=== PATIENT | male | born 1945 | race Caucasian/White ===

== ENCOUNTER 2023-05-13 08:49 | Observation (INO) ==
--- NOTE | 2023-04-22 12:13 | PAT Medication Instructions ---
Medication Instructions Date of Service April 22, 2023 Home Medications aspirin 81 mg tablet 81 mg PO HS cholecalciferol (vitamin D3) 25 mcg (1,000 unit) tablet (Vitamin D3) 25 mcg PO HS coenzyme Q10 100 mg capsule (CoQ-10) 100 mg PO QAM diazepam 5 mg tablet (Valium) 5 mg PO UD PRN multivitamin 1 tab PO QAM rosuvastatin 40 mg tablet (Crestor) 40 mg PO QAM fenofibrate micronized 134 mg capsule 145 mg PO QAM hydrochlorothiazide 12.5 mg tablet 12.5 mg PO QAM magnesium 250 mg tablet 400 mg PO HS metronidazole 0.75 % topical cream 1 applic topical DAILY PRN atenolol 25 mg tablet 25 mg PO QPM Continue as directed diazepam 5 mg tablet (Valium) 5 mg PO UD PRN(if needed) ASK your prescriber and surgeon aspirin 81 mg tablet 81 mg PO HS STOP taking 2 weeks before surgery (or as soon as possible if surgery is within 2 weeks) coenzyme Q10 100 mg capsule (CoQ-10) 100 mg PO QAM STOP taking 48 hours before surgery fenofibrate micronized 134 mg capsule 145 mg PO QAM STOP taking 24 hours before surgery metronidazole 0.75 % topical cream 1 applic topical DAILY PRN DO NOT take the morning of surgery multivitamin 1 tab PO QAM hydrochlorothiazide 12.5 mg tablet 12.5 mg PO QAM Take morning of surgery With a small sip of water, OTHERWISE NOTHING TO EAT OR DRINK AFTER MIDNIGHT: rosuvastatin 40 mg tablet (Crestor) 40 mg PO QAM Take evening before surgery cholecalciferol (vitamin D3) 25 mcg (1,000 unit) tablet (Vitamin D3) 25 mcg PO HS magnesium 250 mg tablet 400 mg PO HS atenolol 25 mg tablet 25 mg PO QPM Other Notes If you have any questions please call us at [phone] or [phone] or [phone] or [phone]
--- NOTE | 2023-04-24 14:28 | Anesthesiology Consultation ---
Date of Service April 24, 2023 Assessment & Plan (1) Encounter for pre-operative examination: - Infectious disease screening: Per assessment on 04/24/23: No known infectious disease contacts or current infectious disease symptoms. No noted Covid positive test result in past 90 days. - Outpatient joint assessment: Pt currently scheduled for inpatient pathway. If surgeon requests review for outpatient joint pathway, patient is not recommended candidate for outpatient joint program from anesthesia standpoint. - Cardiology visit (11/20/22): "Patient feeling well from a cardiovascular per spective. Chronic dyspnea on exertion unchanged. Notes mild, chronic ankle edema primarily affecting his left lower extremity. Reports occasional cough. Feels mildly short of breath when he lies down for approximately 5 seconds. Denies paroxysmal nocturnal dyspnea.. Chronic CAD with prior CABG x3 1997 and stable class 2 Angina.. dobutamine stress ECHO negative for inducible ischemia 01/2018.. Asymptomatic sinus bradycardia on beta-saeed therapy.. AAA - 4.0 cm.. Moderate asymptomatic bilateral internal carotid artery stenosis.. stable per duplex 02/2022.. Mild dilatation versus ectasia of the proximal right and left common iliac arteries.. Dyslipidemia with hypertriglyceridemia - borderline LDL control; atorvastatin transitioned to rosuvastatin.. Add HCTZ 12.5mg daily.. Reduce atenolol to 12.5mg daily due to resting bradycardia. Repeat carotid duplex and abdominal aortic duplex February 2023." Carotid duplex + AAA imaging updated 02/2023. Cardiology/PCP monitoring* - PCP visit (04/07/2023): "Jorgito Clemons is a 78 year old male with hx of AAA(4 cm), CAD s/p CABG, b/l carotid stenosis, Prediabetes, HTN, anxiety, CKDII-III, BPHs/p TURP, thrombocytopenia.. Pt is following up with [facility] and Dr. Sullivan.. dx with meniscus injury.. gotten received steroid shot.. HTN with CKD II-III.. on atenolol 12.5mg daily and HCTZ 12.5mg daily.. CAD s/p CABG.. on crestor and aspirin.. denied any CP or SOB.. BP 130/65.. HTN, goal below 140/90 (Primary).. BP wnl.. continue current meds.. Follow Up: Return in about 6 months" - Anesthesia hx: Spinal took "much longer than expected" to wear off when used for testicular surgery 1960s per patient Chart Review Chart Review: Acceptable Risk for Surgery and Patient seen in Pre Admission Testing Teaching & Discussion Pre-Anesthesia Teaching/Discussion Notes: Instructed NPO after midnight before surgery,except medications with 15 cc of water. Medication instructions provided according to the PAT guidelines. History Surgery Operation Date: 05/13/23 10:40 Proposed Procedures p Right Unicompartmental versus - Merlin Sullivan MD s Total Knee Arthroplasty - Merlin Sullivan MD Height/Weight Height: 5 ft 8 in Weight: 90.9 kg Allergies Allergy/AdvReac Type Severity Reaction Status Date / Time solifenacin AdvReac Unknown constipatio Verified 04/15/23 10:00 n Medications Home Medications Medication Instructions Recorded Confirmed Last Taken aspirin 81 mg tablet 81 mg PO HS 10/08/21 04/15/23 10/03/21 cholecalciferol (vitamin D3) 25 25 mcg PO HS 10/08/21 04/15/23 10/10/21 22:00 mcg (1,000 unit) tablet (Vitamin D3) coenzyme Q10 100 mg capsule 100 mg PO QAM 10/08/21 04/15/23 10/10/21 08:00 (CoQ-10) diazepam 5 mg tablet (Valium) 5 mg PO UD PRN Anxiety 10/08/21 04/15/23 Unknown multivitamin 1 tab PO QAM 10/08/21 04/15/23 10/09/21 rosuvastatin 40 mg tablet (Crestor) 40 mg PO QAM 10/08/21 04/15/23 10/11/21 04:00 fenofibrate micronized 134 mg 145 mg PO QAM 12/17/22 04/15/23 Unknown capsule hydrochlorothiazide 12.5 mg tablet 12.5 mg PO QAM 12/17/22 04/15/23 Unknown magnesium 250 mg tablet 400 mg PO HS 12/17/22 04/15/23 Unknown metronidazole 0.75 % topical cream 1 applic topical DAILY PRN Skin 12/17/22 04/15/23 Unknown Irritation atenolol 25 mg tablet 25 mg PO QPM 04/15/23 04/15/23 Unknown Past Medical History Medical History Aneurysm of infrarenal abdominal aorta Abdominal Aorta Duplex 02/2023: 3.9cm AAA Follows with [facility] cardio CAD (coronary artery disease) s/p CABG x4 (1997) Follows with [facility] cardio Carotid stenosis, bilateral Carotid duplex 02/2023: B/L ICA stenosis 50-69% stenosis Dyslipidemia Gastroesophageal reflux disease Hx of basal cell carcinoma Hx of melanoma of skin Hypertension Intractable hiccoughs Hx s/p lumbar discectomy at [facility] (03/2015) felt r/t anesthesia > had for 3 days straight, no current issues Lumbar stenosis with neurogenic claudication Myocardial Infarction R/t complications with attempted cardiac stent placement, "had to then have a CABG"- 1997 Prediabetes Thrombocytopenia Hx noted per records Exercise / Class Metabolic Activity III < 4 Walking/Shop/Light housework Past Family History Family History Other No family history of adverse response to anesthesia Past Surgical History Surgical History History of appendectomy History of cardiac cath total 3 cardiac caths, most recent 2006 History of cholecystectomy History of colonoscopy History of esophagogastroduodenoscopy (EGD) History of orchiectomy, unilateral Hx of bilateral cataract extraction Hx of detached retina repair Right eye S/P CABG x 4 CABGx4 (1997) S/P lumbar discectomy Dr Garibay at [facility] S/P TURP TURP (10/11/21): LMA#5 at [facility]. No noted anesthesia complications per post-op anesthesia progress note. Status post Mohs surgery Melanoma and BCC excision Past Anesthesia History No Family Hx of Anesthesia Complications and Other "Severe" hiccups s/p lumbar discectomy at [facility] (03/2015) felt r/t anesthesia > had for 3 days straight, no current issues Spinal took "much longer than expected" to wear off when used for testicular surgery 1960s per patient History of PONV No Hx of PONV and No Hx of Motion Sickness Social History Smoking Status: Former smoker Do You Dip or Chew Tobacco: No Smoking End Date: Quit 1997 Hx Alcohol Use: No (No ETOH use x 15 years) Hx Substance Use: No substance use type: does not use Review of Systems Patient denies chest pain, shortness of breath, dyspnea on exertion, fever, chills, cough, wheezing, palpitations. Physical Exam Vital Signs VITALS BP 145/69 P 63 TEMP 97.9 SP02 95%RA RESP 16 PHYSICAL Full cervical extension range of motion. Full TMJ range of motion. TMD 3 finger breaths Mallampati Score 2 Dentition: full upper denture Lungs: clear throughout to auscultation Cardiac: regular rate and rhythm, no murmurs noted Spine: normal Carotid arteries: negative bruit Extremities: no LE edema Lab Results Anesthesia Preop Results Results Anesthesia Widget: WBC 4.74 K/ul (4.8-10.8) L 04/24/23 Hgb 13.7 g/dl (14.0-18.0) L 04/24/23 Hct 40.8 % (42.0-52.0) L 04/24/23 Plt 148 K/uL (130-400) 04/24/23 Na 139 mmol/L (136-145) 04/24/23 K 3.9 mmol/L (3.5-5.1) 04/24/23 Cl 105 mmol/L (98-107) 04/24/23 CO2 27 mmol/L (21-32) 04/24/23 BUN 20 mg/dl (6-23) 04/24/23 Creat 1.02 mg/dl (0.6-1.4) 04/24/23 Glucose Level 112 mg/dl (70-99(Fasting)) H 04/24/23 PT 11.1 Seconds (9.0-12.0) 04/24/23 PTT 29.6 Seconds (21.0-31.0) 04/24/23 INR 1.0 (0.9-1.1) 04/24/23 Blood Type A Negative 04/24/23 Antibody Screen NEGATIVE 04/24/23 Testing Electrocardiogram Date: 11/20/22 SB at 50bpm. RBBB. No significant change compared to 09/17/21 per community recreation programmer comparison. Chest X-Ray Date: 04/24/23 FINDINGS: PA and lateral chest radiographs are compared to study dated 09/25/2021. Correlation is made with chest CT dated 03/13/2015 The patient is status post midline sternotomy. The heart is enlarged and noting atherosclerotic calcification of the thoracic aorta. The pulmonary vasculature is nondistended congested. Emphysema and chronic interstitial thickening is similar to previous. There is bibasilar scarring/atelectasis. No airspace consolidation or pleural effusion is identified. There is no pneumothorax. The skeletal structures are osteopenic. The bony thorax appears intact. Degenerative change is noted in the spine. Cholecystectomy clips are noted in the upper abdomen. IMPRESSION: Cardiomegaly and emphysema with no active disease in the chest. Stress Test Date: 01/27/18 Exercise Negative for inducible ischemia EF 55-59% cLVH Normal LV wall motion and EF RBBB Grade I diastolic dysfunction Mild tricuspid regurgitation Other Testing Carotid duplex Date: 02/27/23 The right vertebral artery demonstrates antegrade flow. The left vertebral artery demonstrates antegrade flow. Impression: Right carotid artery duplex examination indicates evidence of 50-69% stenosis of the internal carotid artery. Left carotid artery duplex examination indicates evidence of 50-69% stenosis of the internal carotid artery. Aortic duplex Date: 02/27/23 There is evidence of a 3.9 cm abdominal aortic aneurysm. Color Doppler imaging demonstrates flow consistent with a patent lumen at and distal to the aortic aneurysm.
[~2023-05-13 08:49] MED LIST: ACETAMINOPHEN 500 MG TAB PO SCH; BUPIVACAINE 0.25% PF 30 ML VIAL ONE; BUPIVACAINE 0.5 % 5 MG/1 ML PF 10ML VIAL ONE; BUPIVACAINE LIPOSOME/PF 266 MG, BUPIVACAINE/EPINEPHRINE 50 ML, SODIUM CHLORIDE 0.9% PF ... INFIL SCH; CeleBREX 200 MG CAP PO SCH; FAMOTIDINE 20 MG TAB PO SCH; LR 500ML BOLUS, THEN 15ML/HR IV SCH; LR 60ML/HR IV SCH; METOCLOPRAMIDE HCL 10 MG TABLET PO SCH; TRANEXAMIC ACID 1,000 MG **IV Intra-op IV SCH; ceFAZolin 2000MG 2,000 MG/15 ML SYR IV SCH; dexAMETHasone 4 MG TAB PO SCH
--- NOTE | 2023-05-13 08:58 | History & Physical Bridge Note ---
Date of Service May 13, 2023 History & Physical Bridge Note I have examined the patient, reviewed the History & Physical and in the interval since the performance of the History & Physical I have noted the following changes of clinical significance: no changes noted
[2023-05-13] MEDS ORDERED: PROPOFOL IV EMULSION 10 MG/ML 20 ML VIAL IV ONE (09:20)
[2023-05-13] MEDS ORDERED: MIDAZOLAM HCL 1 MG/ML 2ML VIAL ONE (09:20)
[2023-05-13] MEDS ORDERED: ONDANSETRON INJ 2 MG/ML 2 ML VIAL IV PRN ×2 (10:21→14:24)
[2023-05-13] MEDS ORDERED: ATROPINE SULFATE 0.1 MG/ML 10ML SYR IV PRN (10:21)
[2023-05-13] MEDS ORDERED: ePHEDrine sulfate 50 MG/ML AMP IV PRN (10:21)
[2023-05-13] MEDS ORDERED: SODIUM CHLORIDE 0.9% PF 50 ML VIAL ONE (11:00)
[2023-05-13] MEDS ORDERED: BUPIVACAINE LIPOSOME 1.3% 266 MG/20 ML VIAL ONE (11:00)
[2023-05-13] MEDS ORDERED: BUPIVACAINE/EPINEPHRINE 0.25% 1:200,000 30 ML VIAL ONE (11:00)
[2023-05-13] MEDS ORDERED: fentaNYL citrate PF 100 MCG/2 ML VIAL ONE (11:27)
[2023-05-13] MEDS ORDERED: ePHEDrine sulfate 50 MG/5 ML SYR ONE (11:38)
[2023-05-13] MEDS ORDERED: PHENYLEPHRINE HCL 10 MG/ML VIAL ONE (11:38)
[2023-05-13] MEDS ORDERED: ONDANSETRON INJ 2 MG/ML 2 ML VIAL ONE (12:16)
--- NOTE | 2023-05-13 13:17 | Operative Report ---
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 He did have a moderate-sized knee effusion. He did have a defect about the size of a dime consistent with avascular necrosis and cavitary area of the bone with a pretty significant cyst in the medial femoral condyle. He had a fixed varus deformity to his knee. Specimens Right knee sent for pathology Anesthesia Type General Regional Complications none Disposition Accompanied Patient To Recovery: No Indications Patient is an 78-year-old gentleman said about a 6-month history of significantly increasing right medial knee pain discomfort. X-rays were fairly benign initially. He failed all conservative measures. He had an MRI and x-ray which further suggest a vast necrosis of the medial femoral condyle. He failed conservative measures and elected proceed with partial knee replacement. Description of Procedure Operative implants consist of: 1 Biomet Clayton medium femoral component. 2. Biomet Clayton right medial size D tibial tray. 3. 4 mm mobile-bearing polyethylene insert. The patient was taken the operating, identified, placed on the operating table supine position. All contractors were properly padded. IV antibiotics tried by anesthesia team. A spinal anesthetic was attempted in the holding area but unsuccessful. An abductor canal block had been provided. A general anesthetic was therefore implemented. Right Tetrick was then placed. The right lower extremity was then prepped and draped in usual sterile fashion. The right leg was elevated exsanguinated with use of an Esmarch in terms playset 300 mmHg. An anterior approach of the right knee was then performed to longitudinal incision beginning at the superior medial border of the patella and extending just medial to the tibial tubercle. Sharp dissection was carried through subcutaneous tissue down to the extensor mechanism. A medial parapatellar arthrotomy incision was made. Some slight subperiosteal dissection was carried out medially. Great care was taken throughout the procedure protect MCL ligament. The fat pad was resected. I then examined the knee and the lateral and patellofemoral compartments were well preserved. We elected proceed with a partial knee replacement. The osteophyte was taken off the intercondylar notch area. The femur was sized to a size medium. The external tibial alignment jig was then placed and adjusted and attached to the medium spoon with a 4G clamp. The tibial guide was pinned in place. The tibial cut was made. The bone fragment was removed. The tibia was sized to a size D. Attention drawn the femur. The distal femur examined the sharp drill. The intramedullary deisi was placed. A size medium femoral component template was placed. It was attached to the IM deisi. The holes were drilled for the femoral component. The posterior cutting guide was placed and the posterior cut was made. The remnant of the medial meniscus was excised. The femur trial was placed. The tibia was then trialed and the 4 insert fit most appropriately in flexion and the 2 in extension. Therefore all implants were removed and the 2 spigot was placed. Distal femur was milled again. The trial implants were placed and the 4 feeler gauge fit appropriate in flexion extension. The femoral preparation guide was placed. The anterior milling was performed followed by the posterior osteophyte resection. The posterior osteophyte was removed. The distal femur was drilled with the cement drill for cement interdigitation. The tibial tray was pinned in place. The toothbrush blade saw was used to create the keel for the tibial tray. We then trialed the knee with a keeled implant and the 4 implant fit appropriately. We placed the elected to place these implants. Neal all trial implants were removed. I irrigated the wound extensively. A single batch [place] G cement was mixed. A Biomet Clayton medium femoral component was cemented in place in addition to a right medial size D tibial tray. All extraneous cement was removed. The 4 feeler gauge was placed and the knee was brought into 30 degrees short of full extension till cement hardened. Final cement check was then performed. The permanent 4 mm insert was placed. We irrigated the wound extensively. I injected locally with total of 100 cc of combination of 20 cc of Exparel, 30 cc normal saline, 50 cc of quarter percent Marcaine with epinephrine. Patient did receive 1 g tranexamic acid. The tourniquet was let down for final tourniquet time 61 minutes. Hemostasis assured use electrocautery. Extensor mechanism then closed with #1 Vicryl suture in a [id number] fashion. Extensor Maxon checked found to be intact and subcutaneous tissues then closed with 2-0 Dexon suture in a buried interrupted fashion skin was closed skin fiona. Leg was then cleaned and dried and a sterile dressing was Xeroform, 4 fours, sterile cast padding and Malik bandage were applied. Patient then brought out of general anesthesia and transferred to the recovery room in stable condition. Patient tolerated the procedure well and there were no complications. Leonard Saavedra, my physician medical services assistant, was present for the entire procedure. His assistance was essential and required for appropriate patient positioning, prepping and draping, surgical exposure, performing the technical details of the operation, placement the implants, closure of the wound, and placement of the sterile bandage. I attest to the content of the Intraoperative Record and any orders documented therein. Any exceptions are noted below.
[2023-05-13] MEDS: fentaNYL citrate PF 100 MCG/2 ML VIAL IV PRN ×2 (13:35→13:40)
--- NOTE | 2023-05-13 13:48 | Anesthesiology Progress Note ---
Date of Service May 13, 2023 Anesthesia Post Procedure Vital Signs Vital Signs: Temp Pulse Pulse Resp BP Pulse Ox O2 Del Method 05/13/23 13:45 36.4 C L 75 17 110/70 94 Nasal Cannula 05/13/23 13:35 79 17 110/50 L 95 Nasal Cannula 05/13/23 13:25 83 19 114/52 L 93 Nasal Cannula 05/13/23 13:15 79 16 113/48 L 96 Oxymask 05/13/23 13:07 36 C L 89 14 117/53 L 93 Oxymask 05/13/23 09:28 36.5 C 67 20 130/69 96 Room Air O2 Flow Rate 05/13/23 13:45 2 05/13/23 13:35 2 05/13/23 13:25 2 05/13/23 13:15 4 05/13/23 13:07 6 05/13/23 09:28 Pain Intensity Right Knee: Pain Intensity: 3 Transfer of Care Handoff Completed per policy Notes Mental Status: alert / awake / arousable Patient Amnestic to Procedure: Yes Nausea / Vomiting: adequately controlled Pain: adequately controlled Airway Patency, RR, SpO2: stable & adequate BP & HR: stable & adequate Hydration State: stable & adequate Anesthetic Complications: no major complications apparent and Pt Satisfied with anesthetic care
--- NOTE | 2023-05-13 14:06 | XRay Report ---
XR knee RT 1 or 2V routine HISTORY: 78 years-old Male Surgical Post Op right knee arthroplasty COMPARISON: 04/10/2023 TECHNIQUE: 2 views of the right knee FINDINGS: Medial compartment hemiarthroplasty. Overlying skin fiona are present along with expected postopera tive soft tissue swelling with deep tissue air. No acute fracture or unexpected opaque foreign body. Arterial calcifications. IMPRESSION: Expected postoperative changes. ACT 112: Negative or not required by law. The above report was generated using voice recognition software. It may contain grammatical, syntax o r spelling errors. Electronically signed by: Nolan Solomon M.D. 05/13/2023 2:04 PM
[2023-05-13] MEDS ORDERED: bisacodyL 10 MG SUPP PR PRN (14:24)
[2023-05-13] MEDS ORDERED: traMADol HCL 50 MG TABLET PO PRN (14:24)
[2023-05-13] MEDS ORDERED: GLUCOSE 10 TAB/TUBE PO PRN (14:24)
[2023-05-13] MEDS ORDERED: METOCLOPRAMIDE HCL INJ 5 MG/ML 2 ML VIAL IV PRN (14:24)
[2023-05-13] MEDS ORDERED: NALOXONE HCL 0.4 MG/1 ML VIAL/CARP IV PRN (14:24)
[2023-05-13] MEDS ORDERED: GLUCOSE 40% GEL 15 GM TUBE PO PRN (14:24)
[2023-05-13] MEDS ORDERED: HYDROmorphone INJ 0.5 MG/0.5 ML SYR IV PRN (14:24)
[2023-05-13] MEDS ORDERED: GLUCAGON FOR INJ 1 MG VIAL SQ PRN (14:24)
[2023-05-13] MEDS ORDERED: MAGNESIUM HYDROXIDE SUSP 30 ML UDC PO PRN (14:24)
[2023-05-13] MEDS ORDERED: ALUMINUM/MAGNESIUM SUSP 30 ML UDC PO PRN (14:24)
[2023-05-13] MEDS ORDERED: CARBOHYDRATES FOR HYPOGLYCEMIA PO PRN (14:24)
[2023-05-13] MEDS ORDERED: DEXTROSE 50% 50 ML SYRINGE IV PRN (14:24)
[2023-05-13] MEDS ORDERED: diazePAM 5 MG TABLET PO PRN (14:24)
[2023-05-13] MEDS ORDERED: PHARMACY GLYCEMIC MGMT CONSULT PRN (14:24)
[2023-05-13] MEDS ORDERED: metroNIDAZOLE 0.75% TOPICAL GEL 45 GM TUBE TOP PRN (14:51)
[2023-05-13] MEDS: SODIUM CHLORIDE 0.9% 1,000 ML IV SCH (15:00)
[2023-05-13] MEDS: ACETAMINOPHEN 500 MG TAB PO SCH ×2 (15:00→22:41)
--- NOTE | 2023-05-13 15:04 | Pharmacy Report ---
Pharmacy Glycemic Short Note 2 - Date of Service May 13, 2023 - Glycemic Short OUTPATIENT ANTIDIABETIC REGIMEN: * N/A ASSESSMENT: * 78 y/o M admitted for R TKA. Patient does not seem to have a history of diabetes, however we do not have A1c. No anti-diabetic meds listed on home med list. * He received oral Dexamethasone 8 mg preop today in the OR. Expect this to cause some steroid induced hyperglycemia this evening. * A small dose scale of basal insulin based on BSG ordered with dinner today. * Novolog parameters ordered based on stress of of 2. PLAN FOR INPATIENT GLYCEMIC CONTROL: * Basal insulin * Lantus 0-10 units SQ with dinner * Bolus insulin * NovoLog per scale ACHS or Q6hrs while NPO * Goal Range: Low 120 mg/dL - High 150 mg/dL * Correction Factor: 20 mg/dL/unit * Nutritional / Prandial insulin per carb ratio of 1 unit per 9 grams CHO consumed
[2023-05-13] MEDS ORDERED: LANTUS PER UNIT CHARGE SC SCH (16:30)
[2023-05-13] MEDS: INSULIN ASPART PER UNIT CHARGE SC SCH ×2 (17:19→21:55)
[2023-05-13] MEDS: ASCORBIC ACID 500 MG TAB PO SCH (17:20)
[2023-05-13] MEDS: KETOROLAC TROMETHAMINE 15 MG/ML VIAL IV SCH ×2 (17:22→22:41)
[2023-05-13] MEDS: ceFAZolin 2000MG 2,000 MG/15 ML SYR IV SCH (18:27)
[2023-05-13] MEDS ORDERED: TRANEXAMIC ACID / 0.7% NACL 1,000 MG/100 ML BAG IV SCH (19:15)
[2023-05-13] MEDS ORDERED: ATENOLOL 25 MG TABLET PO SCH (21:00)
[2023-05-13] MEDS ORDERED: MAGNESIUM OXIDE 400 MG TAB PO SCH (21:00)
[2023-05-13] MEDS ORDERED: SENNA 8.6 MG TAB PO SCH ×2 (21:00)
[2023-05-13] MEDS ORDERED: CHOLECALCIFEROL 1,000 UNITS 25 MCG TAB PO SCH (21:00)
[2023-05-13] MEDS: DOCUSATE SODIUM 100 MG CAP PO SCH (22:37)
[2023-05-13] MEDS: ASPIRIN 81 MG ECTAB PO SCH (22:38)
[2023-05-14] MEDS: SODIUM CHLORIDE 0.9% 1,000 ML IV SCH (01:19)
[2023-05-14] MEDS ORDERED: INSULIN ASPART PER UNIT CHARGE SC SCH (02:00)
[2023-05-14] MEDS: KETOROLAC TROMETHAMINE 15 MG/ML VIAL IV SCH ×2 (03:51→09:56)
[2023-05-14] MEDS: ceFAZolin 2000MG 2,000 MG/15 ML SYR IV SCH (03:51)
[2023-05-14 07:29] VITALS: BP 118/64; RESP 19; TEMP 97.9; O2SAT 96
[2023-05-14 07:46] LABS: Hematocrit (blood only) 33.6 % (42.0-52.0); Hemoglobin 11.6 g/dl (14.0-18.0); Mean Corpuscular Hemoglobin 31.7 pg (25.0-34.0); Mean Corpuscular Hgb Conc 34.5 g/dL (32.0-36.0); Mean Corpuscular Volume 91.8 fL (80.0-100.0); Mean Platelet Volume 9.2 fL (9.4-12.4); Platelet Count 104 K/uL (130-400); RDW Coefficient of Variation 12.7 % (11.5-14.5); RDW Standard Deviation 42.5 fL (36.4-46.3); Red Blood Count 3.66 M/uL (4.70-6.10); White Blood Count 9.91 K/ul (4.8-10.8)
[2023-05-14 07:51] LABS: Estimated Average Glucose 120 mg/dl; Hemoglobin A1C 5.8 % (4.5-5.6)
[2023-05-14] MEDS ORDERED: dexAMETHasone 4 MG TAB PO SCH (08:00)
[2023-05-14 08:28] LABS: Calcium 8.4 mg/dl (8.6-10.3); Potassium 4.1 mmol/L (3.5-5.1)
[2023-05-14] MEDS: INSULIN ASPART PER UNIT CHARGE SC SCH (08:29)
[2023-05-14] MEDS: DOCUSATE SODIUM 100 MG CAP PO SCH (08:31)
[2023-05-14] MEDS: ASPIRIN 81 MG ECTAB PO SCH (08:31)
[2023-05-14] MEDS: ASCORBIC ACID 500 MG TAB PO SCH (08:33)
[2023-05-14 08:34] LABS: BUN Creatinine Ratio 19.5 (10-20); Creatinine Clr Calc Pharmacy 54.4 ml/min; Est GFR (African American) 67.1 ml/min; Est GFR (Non-African American) 57.9 ml/min
[2023-05-14] MEDS ORDERED: TAMSULOSIN HCL 0.4 MG CAP PO SCH (09:00)
[2023-05-14] MEDS ORDERED: NON-FORMULARY MEDICATION (Multivitamin Tablet) PO SCH (09:00)
[2023-05-14] MEDS ORDERED: MULTIVITAMIN TAB PO SCH (09:00)
[2023-05-14] MEDS ORDERED: ROSUVASTATIN CALCIUM 20 MG TAB PO SCH (09:00)
[2023-05-14] MEDS ORDERED: NON-FORMULARY MEDICATION (Coenzyme Q10 [Coq-10] 100 mg Capsule) PO SCH (09:00)
[2023-05-14] MEDS ORDERED: FENOFIBRATE NANOCRYSTALLIZED 145 MG TABLET PO SCH (09:00)
[2023-05-14] MEDS ORDERED: hydroCHLOROthiazide 25 MG TAB PO SCH (09:00)
[2023-05-14] MEDS: ACETAMINOPHEN 500 MG TAB PO SCH (09:56)
[2023-05-14 10:06] VITALS: PULSE 67
--- NOTE | 2023-05-14 14:47 | Surgery Progress Note ---
Date of Service May 14, 2023 Assessment & Plan (1) Status post right partial knee replacement: Plan: 78-year-old gentleman postop day 1 from right partial knee replacement. He is doing well. Really not have any pain to speak of. He is neurologically intact. Is hoping to go home. Plan: 1. DVT prophylaxis including thigh-high teds, SCDs, aspirin twice a day. 2. PT OT. Weight-bear as tolerated. Right total knee protocol. 3. Pain control doing well with current pain regimen. Really not have much in the way of pain. 4. Disposition plan to discharge home with some home health today. Admission and Anticipated Discharge Date Admission Date: May 13, 2023 Subjective 78-year-old gentleman postop day 1 from partial knee replacement. He is doing quite well. Reports no particular pain. No chest pain or shortness of breath. Not feeling dizzy or lightheaded. Physical Exam Physical Exam: Physical examination was a pleasant middle-age male. He was ambulate in the hallway with his therapist when I visited him today. Examination of the knee reveals the dressing be clean dry and intact he can dorsiflex and plantarflex his foot appropriately. He can do a good straight leg raise. He is neurologically intact. Respiratory: normal respiratory effort, lungs clear to auscultation Cardiovascular: RRR, no murmur, no edema Gastrointestinal (Abdomen): normal bowel sounds, soft, nontender, no hepatosplenomegaly Results & Data Vital Signs (Past 12 Hours) Vital Signs Temp Pulse Resp BP Pulse Ox O2 Del Method 05/14/23 10:06 67 05/14/23 07:28 36.6 C 58 L 19 118/64 96 Room Air 05/14/23 04:23 36.5 C 60 18 116/60 93 Room Air Laboratory Results Hemoglobin is 11.6. Hematocrit is 33.6. Electrolytes are stable. PG Care Time/CCT Total # of Minutes Spent Total Time Spent with Patient: Total time spent is greater than 50% in coordination of care (as documented) at patient's floor/unit and/or counseling patient: Coding Level of Care Code None Diagnoses Status post right partial knee replacement Z96.651
--- NOTE | 2023-05-15 09:10 | Discharge Summary ---
Date of Service May 15, 2023 Discharge Data Procedures Performed Operation Date: 05/13/23 10:40 Actual Procedures p Right Unicompartmental Knee Arthroplasty(Right) - Merlin Sullivan MD Hospital Course (1) Status post right partial knee replacement: This is a 78 year old patient admitted on 05/13/23 and underwent partial knee replacement. He tolerated the procedure well and there were no complications. Transferred to the PACU post op and later to the orthopedic floor for further care. He was given ancef for antibiotic prophylaxis. He was also given SHWETHA stockings, SCDs, and aspirin for DVT prophylaxis. Hemoglobin, hematocrit, and vital signs were monitored during his hospital stay and remained stable. Did not require any blood transfusions. There were no complications during his hospital stay. By post op day #1 the patient was tolerating a diabetic diet, pain was reasonably controlled with oral pain medicine, and he was participating in physical therapy. On post op day #1 the patient was discharged home and set up with home health care. __ was given printed discharge instructions including prescriptions for extra strength tylenol, aspirin, ketorolac, cefadroxil, zofran, senokot, flomax, and tramadol. Continue physical therapy, weight bearing as tolerated. Continue SHWETHA stockings. Follow up approximately 2 weeks post op or sooner if there are problems or concerns. Coding Level of Care Code None Diagnoses Status post right partial knee replacement Z96.651
--- OUTSIDE RECORDS SUMMARY | 2023-05-17 18:00 | External Medical Summary | Summary of Care ---
Author Name Unknown Organization [facility] Address [address] [place] [address] Phone [phone] Care Team Providers Care Psychological Examiner Name Role Phone Joelle Silva MD Primary Care Provide r Reason for Visit * Reason Onset Date Comments STAIR AAA 02/27/2023 Encounter Details Date Type Department Care Team Description 02/27/2023 Telephone STAIR [facility] [address], [place] [id number] Program, Stair [address] [place] [address] STAIR AAA Allergies Active Allergy Reactions Severity Noted Date Comments Solifenacin Succinate 03/17/2014 Severe obstipation summer 2012 documented as of this encounter (statuses as of 02/27/2023) Medications Medication Sig Dispensed Refills Start Date End Date Status MULTI-DAY TABS OR 0 10/22/2001 Active COENZYME Q10 100 MG PO TABS one tablet by mouth daily 0 Active ASPIRIN 81 MG PO CHEW take one tablet daily 100 Tab 3 08/16/2014 Active Calcium Carbonate Antacid 500 MG Oral Tablet Chewable Take 2 Tablets by mouth daily as needed (dyspepsia). 0 03/17/2015 Active Cholecalciferol (VITAMIN D) 2000 units Capsule at bedtime. Take one daily 0 03/04/2017 Active diazePAM 5 MG Oral Tablet (Valium)Indications :Generalized anxiety disorder Take by mouth 1 Tablet daily as needed for Anxiety. 30 Tablet 0 10/04/2021 Active Nitroglycerin 0.4 MG/SPRAY Translingual Solution (Nitrolingual)Indic ations:Chronic ischemic heart disease,Coronary artery disease involving match-[place]-be-n[place]wish band coronary artery of match-e-[place] heart without angina pectoris 1 spray under tongue every 5 minutes up to 3 doses in 15 minutes 4.9 g 5 04/29/2022 Active Rosuvastatin Calcium 40 MG Oral Tablet (Crestor)Indication s:Dyslipidemia, goal LDL below 70 Take by mouth 1 Tablet in the morning. 90 Tablet 4 05/01/2022 Active Fenofibrate Micronized 134 MG Oral CapsuleIndications: Dyslipidemia, goal LDL below 100 Take 1 Capsule by mouth in the morning. 90 Capsule 1 11/18/2022 Active Magnesium 200 MG Oral Tablet Take 2 Tablets by mouth at bedtime. 0 Active Atenolol 25 MG Oral Tablet (Tenormin) Take 0.5 Tablets by mouth in the morning. 45 Tablet 5 11/20/2022 Active Additional Information Patient taking differently:12.5 mg OralHS, Reported on 01/17/2023 hydroCHLOROthiazide 12.5 MG Oral Capsule (Hydrodiuril) Take 1 Capsule by mouth in the morning. 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), basal cell carcinoma L nasolabial fold 03/16, L post auricular region 08/19) Hx of actinic keratosis 05/14/2021 Overview: HAKs, AKs Asymptomatic bilateral carotid artery st enosis 04/04/2021 Thrombocytopenia 12/27/2020 History of kidney stones 03/29/2019 Prediabetes 08/19/2017 Overview: Per Prediabetes protocol #1 Coronary artery disease invo lving [place]wish band coronary artery of match-e[place] heart without angina pectoris 04/02/2016 History of melanoma in situ 01/04/2016 Overview: central forehead 09/19 Hypomagnesemia 03/21/2015 BPH with obstruction/lower urinary tract symptoms 02/04/2012 ADVANCE DIRECTIVE INFORMATION 06/11/2010 Dyslipidemia, goal LDL below 70 06/13/20 09 Overview: Per Lipid Taxonomy. GENERALIZED ANXIETY DIS Aneurysm of infrarenal abdominal aorta HTN, goal below 140/90 Lumbar spinal stenosis Overview: s/p lumbar decompression documented as of this encounter (statuses as of 02/27/2023) Resolved Problems Problem Noted Date Resolved Date Esophageal reflux 07/22/2019 07/22/2019 History of nonmelanoma skin cancer 09/08/2018 05/14/2021 Kidney disease, chronic, stage III (GFR 30-59 ml /min) 02/19/2016 03/14/2016 Overview: Per CKD protocol #1 Other chest pain 03/24/2009 02/16/2015 elevated bilirubin 01/20/2004 02/16/2015 Mixed dyslipidemia 12/09/2000 06/13/2009 Overview: Per Lipid Taxonomy. Calculus of kidney 03/29/2019 CHR ISCHEMIC HRT DIS NOS 018 documented as of this encounter (statuses as of 02/27/2023) Immunizations Name Administration Dates Next Due COVID-19 mRNA, LNP-s, No Pre serve, 2-Dose Series (SelStor) 05/02/2021,09/15/2020,08/25/2020 Influenza, Whole Virus 06/26/2000 Pneumococcal Conjugate Vacc, 13 Valent (Prevnar) 03/21/2015 Pneumococcal Polysaccharide PPV23 (Pneumovax) 12/05/2009,08/19/2002 Season Influenza, Quad, PF, Adjuvanted, 65+ Yrs, IM (FLUAD) 03/15/2020 Seasonal Influenza Virus Vac cine, Unspecified Formulation 04/22/2006 Seasonal Influenza, PF, 6 mo ns & Above, IM , (Flulaval) 04/15/2018,04/16/2017 Seasonal Influenza, Quadriva lent Hd (Fluzone Hd) 04/05/2022,04/04/2021 Seasonal Influenza, Quadriva lent, No Preserve, IM 04/19/2016,04/12/2015 04/19/2017 Seasonal Influenza, Split, I IV3, With Preserve, Inj 03/14/2014,04/13/2013,04/21/2012,03/08,03/26/2010,04/20/2009,04/28/20 08,04/09/2007,04/22/2006,04/23/2005,1 09/03/2003,05/31/2003,05/12/2002,06/25 Seasonal Influenza, Trivalen t, Adjuvanted, 65+ yrs 04/13/2019 TD, Preservative Free 10/11/2008 TDAP (age 10 and older)(Boostrix) 11/29/2016 Varicella Zoster Vaccine (Adult) 01/10/2012 Zoster Vaccine Recombinant (Shingrix) 04/06/2019 ,02/01/2019 documented as of this encounter Social History Tobacco Use Types Packs/Day Years Used Date Smoking Tobacco: Former Cigarettes 1 44 Q uit: 03/07/1998 Smokeless Tobacco: Never Comments:quit smoking in 199 8 Alcohol Use Standard Drinks/Week Comments Not Currently 0 (1 standard drink = 0.6 oz pure alcohol) very rare, whiskey or beer once a yr Sex Assigned at Date Recorded Male 01/20/2019 8:57 AM E DT Job Start Date Occupation Industry Not on file Not on file Not on file documented as of this encounter Miscellaneous Notes * Telephone Encounter - Joelle Silva MD - 02/27/2023 5:19 PM EDT Noted and thank you * Telephone Encounter - Donna Roblero LPN - 02/27/2023 3:27 PM EDT AAA - Clinical Summary Name: Jorgito Clemons Age: [age] year old AAA Review: Follow-up Patient Identified by: Problem List Report Imaging Interpretation: Duplex Type of Result: AAA 3.0 to 3.9 cm AAA Care Plan Recommendation: Aortic Duplex - details below Details: in 2 years Next steps: Notify patient. AAA - Communication to Patient Patient letter sent through [employer] or mail. PCP ELA Roblero LPN Coordinator STAIR (System to Track Abnormalities of Importance Reliably) VAS AORTIC DUPLEX EVAL-COMPLETE 02/27/2023 Narrative VASCULAR LAB RESULTS DATE OF EXAM: 02/27/23 PRESENTING CONDITIONS: 1 year f/u; small l abdominal aneurysm This is an interpretation of an exam performed at the [facility]. Immediately before proceeding with the vascular lab procedure reported below, the identity of the patient, the correct exam and the correct procedural site were verified. Melissa scale, color flow and spectral doppler were performed for this examination. PHYSICIAN REPORT: Abdominal Aorta Duplex Examination. Spectral Doppler demonstrates evidence of normal waveforms of the abdominal aorta. Peak systolic velocity measurements of the aorta are 69 centimeters per second. The maximum diameter of the proximal abdominal aorta measures 2.4 centimeters by 2.3 centimeters. The maximum diameter of the mid abdominal aorta measures 2.3 centimeters by 2.1 centimeters. The maximum diameter of the distal abdominal aorta measures 3.9 centimeters by 3.8 centimeters. The maximum diameter of the proximal right common iliac artery measures 1.1 centimeters by 1.2 centimeters. The maximum diameter of the proximal left common iliac artery measures 1.3 centimeters by 1.1 centimeters. Impression : There is evidence of a 3.9 cm abdominal aortic aneurysm. Color Doppler imaging demonstrates flow consistent with a patent lumen at and distal to the aortic aneurysm. documented in this encounter Plan of Treatment Upcoming Encounters Date Type Specialty Care Team Description 04/07/2023 Office Visit Family Medicine Joelle Silva MD [address] [place] [address] [place] [address] 05/06/2023 Hospital Encounter Endoscopy Ashley Hill, DO [address] [place] [address] 05/06/2023 Surgery Endoscopy Ashley Hill DO [address] [place] [address] COLONOSCOPY FLEXIBLE PROXIMAL DIAGNOSTIC 06/04/2023 Office Visit Cardiology Klever Au PA-C [address] [place] [address] 11/05/2023 Office Visit Dermatology Allegra Brower PA-C [address] [place] [address] [place] [address] 02/26/2024 Nurse Only Ancillary [place], Nurse Annual Wellness [address] [place] [address] [place] [address] Scheduled Procedures Name Priority Associated Diagnoses Date/Ti me COLONOSCOPY FLEXIBLE PROXIMAL DIAGNOSTIC Iron deficiency anemia, unspecified iron deficiency anemia type Polyp of colon, unspecified part of colon, unspecified type 05/06/2023 2:30 PM EDT Health Maintenance Due Date Last Done Comments COVID-19 Vaccine (4 - Pfizer series) 06/27/2021 05/02/2021, 09/15/2020, 08/25/2020 Influenza Vaccine (FLU shot) (#1) 2023 04/05/2022, 04/04/2021, 03/15/2020, Additional history exists HbA1c 10/05/2023 10/04/2022, 04/0 11/2021, 12/27/2020, Additional history exists GFR 12/05/2023 12/04/2022, 09/06, 01/24/2022, Additional history exists Depression Screening, Annual for Pts 12 and Over 02/22/2024 02/21/2023 Albumin/Creatinine Ratio 10/04/2025 10/04/2022, 12/06 DTaP,Tdap,and Td Vaccines (2 - Td or Tdap) 11/29/2026 11/29/2016, 10/11/2008 Pneumococcal Vaccine: 65+ Years Completed 03/21/2015, 12/05/2009, 08/19/2002 Zoster Vaccines Completed 04/06/2019, 01/05, 01/10/2012 GARDASIL-HPV IMMUNIZATION SERIES Aged Out No longer eligible based on patient's age to complete this topic Hepatitis B Aged Out No longer eligi ble based on patient's age to complete this topic MENINGOCOCCAL (MENACTRA/MENVEO) Aged Out No longer eligible based on patient's age to complete this topic documented as of this encounter Medical Devices Not on filedocumented as of this encounter Care Teams Psychological Examiner Relationship Specialty Start Date End Date Joelle Silva MD [address] [place] [address] [place] [phone] PCP - General Family Medicine 12/27/20 documented as of this encounter
--- OUTSIDE RECORDS SUMMARY | 2023-05-17 18:00 | External Medical Summary | Summary of Care ---
Author Name Unknown Organization [facility] Address [address] [place] [address] Phone [phone] Care Team Providers Care Adjunct Professor Of U.S. History Name Role Phone Joelle Silva MD Primary Care Provide r Reason for Visit * Reason Onset Date Comments Re-Check Medication Administration 04/07/2023 Flu an d/or Pneumo Inj Encounter Details Date Type Department Care Team Description 04/07/2023 Office Visit Family Medicine [address] [phone] Joelle Silva MD [address] [place] [address] [place], [place] [id number] HTN, goal below 140/90*; Need for prophylactic vaccination and inoculation against influenza; Coronary artery disease involving wales coronary artery of wales heart without angina pectoris; S/P CABG (coronary artery bypass graft) Allergies Active Allergy Reactions Severity Noted Date Comments Solifenacin Succinate 03/17/2014 Severe obstipation summer 2012 documented as of this encounter (statuses as of 04/07/2023) Medications Medication Sig Dispensed Refills Start Date [...] ations:Chronic ischemic heart disease,Coronary artery disease involving wales coronary artery of wales heart without angina pectoris 1 spray under [...] as of this encounter (statuses as of 04/07/2023) Active Problems Problem Noted Date S/P TURP [...] protocol #1 Coronary artery disease invo lving wales coronary artery of wales heart without angina pectoris 04/02/2016 History of [...] as of this encounter (statuses as of 04/07/2023) Resolved Problems Problem Noted Date Resolved Date [...] as of this encounter (statuses as of 04/07/2023) Immunizations Name Administration Dates Next Due COVID-19 mRNA, LNP-s, No Pre serve, 2-Dose Series (LikeBright) 05/02/2021,09/15/2020,08/25/2020 Pneumococcal Conjugate Vacc, 13 Valent (Prevnar) 03/21/2015 Pneumococcal Polysaccharide PPV23 (Pneumovax) 12/05/2009 SEASONAL INFLUENZA, PF, 6 M & Above, IM , (FLULAVAL or FLUZONE) 04/15/2018,04/16/2017 Season Influenza, Quad, PF, Adjuvanted, 65+ Yrs, IM (FLUAD) 03/15/2020 Seasonal Influenza Virus Vac cine, Unspecified Formulation 04/22/2006 Seasonal Influenza, Quadriva lent Hd (Fluzone Hd) 04/07/2023,04/05/2022,04/04/2021 Seasonal Influenza, Quadriva lent, No Preserve, IM 04/19/2016,04/12/2015 04/19/2017 Seasonal Influenza, Split, I IV3, With Preserve, Inj 03/14/2014,04/13/2013,04/21/2012,03/08,03/26/2010,04/20/2009,04/28/20 08,04/09/2007,04/22/2006 Seasonal Influenza, Trivalen t, Adjuvanted, 65+ yrs 04/13/2019 TD, Preservative Free 10/11/2008 TDAP (age 10 and older)(Boostrix) 11/29/2016 Varicella Zoster Vaccine (Adult) 01/10/2012 Zoster Vaccine Recombinant (Shingrix) 04/06/2019 ,02/01/2019 documented as of this encounter Social History Tobacco Use Types Packs/Day Years Used Date Smoking Tobacco: Former Cigarettes 1 44 Q uit: 03/07/1998 Smokeless Tobacco: Never Tobacco Cessation:Counseling Given: No Comments:quit smoking in 1997 Alcohol Use Standard Drinks/Week Comments Not Currently 0 (1 standard drink = 0.6 oz pure alcohol) very rare, whiskey or beer once a yr Sex Assigned at Date Recorded Male 01/20/2019 8:57 AM E DT Job Start Date Occupation Industry Not on file Not on file Not on file documented as of this encounter Last Filed Vital Signs Vital Sign Reading Time Taken Comments Blood Pressure 130/65 04/07/2023 10:24 AM EDT Pulse 75 04/07/2023 10:24 AM EDT Temperature 35.7 C (96.3 F) 04/07/2023 1 0:24 AM EDT Respiratory Rate 16 04/07/2023 10:2 4 AM EDT Oxygen Saturation 94% 04/07/2023 10: 24 AM EDT Inhaled Oxygen Concentration - - Weight 90.2 kg (198 lb 12.8 oz) 023 10:24 AM EDT Height 170.8 cm (5' 7.24") 04/07/2023 1 0:24 AM EDT Body Mass Index 30.91 04/07/2023 10:24 AM EDT documented in this encounter Progress Notes * Joelle Silva MD - 04/07/2023 10:33 AM EDT Subjective: HPI: Jorgito Clemons is a 78 year old male with hx of AAA (4 cm), CAD s/p CABG, b/l carotid stenosis, Prediabetes, HTN, anxiety, CKD II-III, BPH s/p TURP, thrombocytopenia seen for Pt is following up with [facility] and Dr. Sullivan - dx with meniscus injury - gotten received steroid shot HTN with CKD II-III: - on atenolol 12.5mg daily and HCTZ 12.5mg daily - compliant with medications CAD s/p CABG: - on crestor and aspirin - denied any CP or SOB Patient Active Problem List Diagnosis Code GENERALIZED ANXIETY DIS F41.1 Dyslipidemia, goal LDL below 70 E78.5 ADVANCE DIRECTIVE INFORMATION BPH with obstruction/lower urinary tract symptoms N40.1, N13.8 Aneurysm of infrarenal abdominal aorta (HCC) I71.43 Hypomagnesemia E83.42 HTN, goal below 140/90 I10 Lumbar spinal stenosis M48.061 History of melanoma in situ Z86.006 Coronary artery disease involving wales coronary artery of wales heart without angina pectoris I25.10 Prediabetes R73.03 History of kidney stones Z87.442 Thrombocytopenia (HCC) D69.6 Asymptomatic bilateral carotid artery stenosis I65.23 Hx of nonmelanoma skin cancer Z85.828 Hx of actinic keratosis Z87.2 S/P CABG (coronary artery bypass graft) Z95.1 S/P TURP Z90.79 Current Outpatient Medications Medication Sig Dispense Refill MULTI-DAY TABS OR 0 COENZYME Q10 100 MG PO TABS one tablet by mouth daily ASPIRIN 81 MG PO CHEW take one tablet daily 100 Tab 3 Calcium Carbonate Antacid 500 MG Oral Tablet Chewable Take 2 Tablets by mouth daily as needed (dyspepsia). Cholecalciferol (VITAMIN D) 2000 units Capsule at bedtime. Take one daily diazePAM 5 MG Oral Tablet (Valium) Take by mouth 1 Tablet daily as needed for Anxiety. 30 Tablet 0 Nitroglycerin 0.4 MG/SPRAY Translingual Solution (Nitrolingual) 1 spray under tongue every 5 minutes up to 3 doses in 15 minutes 4.9 g 5 Rosuvastatin Calcium 40 MG Oral Tablet (Crestor) Take by mouth 1 Tablet in the morning. 90 Tablet 4 Fenofibrate Micronized 134 MG Oral Capsule Take 1 Capsule by mouth in the morning. 90 Capsule 1 Magnesium 200 MG Oral Tablet Take 2 Tablets by mouth at bedtime. Atenolol 25 MG Oral Tablet (Tenormin) Take 0.5 Tablets by mouth in the morning. (Patient taking differently: Take 0.5 Tablets by mouth at bedtime.) 45 Tablet 5 hydroCHLOROthiazide 12.5 MG Oral Capsule (Hydrodiuril) Take 1 Capsule by mouth in the morning. 100 Capsule 6 Ketoconazole 2 % External Cream Apply 2x daily to facial wash until resolved, then when flaring 60 g 0 No current facility-administered medications for this visit. Past Medical History: Diagnosis Date Aneurysm of infrarenal abdominal aorta (HCC) Calculus of kidney Coronary atherosclerosis CABG 1997 PALENCIA-LAD, SVG-OM2, SVG-PDA-RCA Coronary atherosclerosis of wales coronary artery CATH 1997 40% LAD, 40% Cx(sep. origins), diffuse 90% RCA. Cath 03/08 PALENCIA-LAD patent, SVG-CxOM patent, SVG(seq)-RCA(patent)-PDA 100%, LAD MLI, cx 70%, RCA 100 Esophageal reflux Generalized anxiety disorder HTN, goal below 140/90 Lumbar spinal stenosis s/p lumbar decompression Mixed dyslipidemia Past Surgical History: Procedure Laterality Date CABG, ARTERIAL, FOUR OR MORE 07/07/1997 CABG, Arterial, Four+ CATHETERIZE LEFT HEART THRU SKIN 03/27/2009 LEFT HEART CATH, PERCUTANEOUS performed by KATHARINE NOLAN at [facility] COLONOSCOPY 09/12/2010 polyp--repeat 5 years CXR 2 VIEWS AP/PA & LATERAL 03/29/2001 PAH, Impression: No active disease Mild cardiomegaly DECOMPRESS LUMBAR SPINAL CORD SEG 03/08/2015 lumbar decomp--Lani EGD, FLEXIBLE, W/BIOPSY 09/12/2010 dr peguero IO MRI LUMBAR SPINE WO CONTRAST 01/20/2015 HNP L4-5, infrarenal AAA MISCELLANEOUS ORDER 07/07/1961 right testicle removed NM TRGOVIND ELECTROSURG RESCJ PROSTATE BLEED COMPLETE 10/11/2021 Dr. Bojorquez REMOVAL OF APPENDIX 07/07/1958 REMOVE GALLBLADDER 07/07/1999 US AORTA 02/24/2008 normal Review of patient's allergies indicates: Allergen Reactions Vesicare [Solifenacin Succinate] Severe obstipation summer 2012 Family History Problem Relation Age of Onset Diabetes Mother Diabetes Grandmother (Maternal) Musculo-skeletal Disorder Brother rheumatoid arthritis Social History Tobacco Use Smoking status: Former Packs/day: 1.00 Years: 44.00 Pack years: 44.00 Types: Cigarettes Quit date: 03/07/1998 Years since quittin.1 Smokeless tobacco: Never Tobacco comments: quit smoking in 1997 Substance Use Topics Alcohol use: Not Currently Comment: very rare, whiskey or beer once a yr Vaping/E-Cigarette Use Vaping/E-Cigarette Use Never User Vaping/E-Cigarette Substances Vaping/E-Cigarette Devices ROS: -Per HPI OBJECTIVE: BP 130/65 | Pulse 75 | Temp 35.7 C (96.3 F) (Tympanic) | Resp 16 | Ht 1.708 m (5' 7.24") | Wt 90.2 kg (198 lb 12.8 oz) | SpO2 94% | BMI 30.91 kg/m | BSA 2.07 m PHYSICAL EXAM: Vitals are reviewed General:. NAD, well developed HEENT:. Normal Conjunctiva, EOMI Cardiac:. Normal S1, S2, no murmur Lungs:. CTA, no wheezing or crackles MSK:. Normal gait Psych:. AAOx3, normal affect ASSESSMENT/PLAN: HTN, goal below 140/90 (Primary) - BP wnl - continue current meds Need for prophylactic vaccination and inoculation against influenza - INFLUENZA VACC, QUAD, HIGH DOSE (FLUZONE HD) Coronary artery disease involving wales coronary artery of wales heart without angina pectoris S/P CABG (coronary artery bypass graft) - continue crestor and aspirin Follow Up: Return in about 6 months (around 10/07/2023). [facility] [place] [phone] * Tia Elizondo LPN - 04/07/2023 10:23 AM EDT PRE - ADMINISTRATION DOCUMENTATION Are you experiencing any cold symptoms or fever? No Have you had Guillain-Carolina Syndrome (an illness that causes paralysis) within the last 6 weeks? No Have you had the flu shot in the past? YES Have you ever had a reaction to the flu shot? No Tia Elizondo LPN, 04/07/2023 10:23 AM Immunization Administration Documentation Time Out Procedure Performed: Yes Patient Identified (Ask Name/Date of ): Yes Does the patient have a fever greater than 101 degrees today? No Patient allergic to latex? No VFC Stock: No Immunization(s) verified: Yes, Immunization Name: Flu, VIS Sheet(s) given: Yes Verified Side and Site: Yes Verified Shot(s) with Parent(s)/Patient: Yes documented in this encounter Nursing Notes * Tia Elizondo LPN - 04/07/2023 10:23 AM EDT Pt here for check up No concerns noted documented in this encounter Plan of Treatment Upcoming Encounters Date Type Specialty Care Team Description 05/06/2023 Hospital Encounter Endoscopy Ashley Hill, DO [address] [place] [address] 05/06/2023 Surgery Endoscopy Ashley Hill, DO [address] [place] [address] COLONOSCOPY FLEXIBLE PROXIMAL DIAGNOSTIC 06/04/2023 Office Visit Cardiology Klever Au PA-C [address] [place] [address] 10/08/2023 Office Visit Family Medicine Joelle Silva MD [address] [place] [address] [place] [address] 11/05/2023 Office Visit Dermatology Allegra Brower PA-C [address] [place] [address] [place] [address] 02/26/2024 Nurse Only Ancillary [place], Nurse Annual Wellness [address] [place] [address] [place] [address] Scheduled Procedures Name Priority Associated Diagnoses Date/Ti me COLONOSCOPY FLEXIBLE PROXIMAL DIAGNOSTIC Iron deficiency anemia, unspecified iron deficiency anemia type Polyp of colon, unspecified part of colon, unspecified type 05/06/2023 2:30 PM EDT Health Maintenance Due Date Last Done Comments COVID-19 Vaccine (4 - Pfizer series) 06/27/2021 05/02/2021, 09/15/2020, 08/25/2020 HbA1c 10/05/2023 10/04/2022, 04/0 11/2021, 12/27/2020, Additional history exists GFR 12/05/2023 12/04/2022, 09/06, 01/24/2022, Additional history exists Depression Screening 02/22/2024 02/21/2023 Albumin/Creatinine Ratio 10/04/2025 10/04/2022, 12/06 DTaP,Tdap,and Td Vaccines (2 - Td or Tdap) 11/29/2026 11/29/2016, 10/11/2008 Pneumococcal Vaccine: 65+ Years Completed 03/21/2015, 12/05/2009, 08/19/2002 Zoster Vaccines Completed 04/06/2019, 01/05, 01/10/2012 Influenza Vaccine (FLU shot) Completed 08/2022, 04/05/2022, 04/04/2021, Additional history exists GARDASIL-HPV IMMUNIZATION SERIES Aged Out No longer eligible based on patient's age to complete this topic Hepatitis B Aged Out No longer eligi ble based on patient's age to complete this topic MENINGOCOCCAL (MENACTRA/MENVEO) Aged Out No longer eligible based on patient's age to complete this topic documented as of this encounter Medical Devices Not on filedocumented as of this encounter Visit Diagnoses Diagnosis HTN, goal below 140/90- Primary Unspecified essential hypertension Need for prophylactic vaccination and inoculation against influenza Coronary artery disease involving wales coronary artery of wales heart without angina pectoris S/P CABG (coronary artery bypass graft) Postsurgical aortocoronary bypass status Iron deficiency anemia, unspecified iron deficiency anemia type Polyp of colon, unspecified part of colon, unspecified type documented in this encounter Care Teams Adjunct Professor Of U.S. History Relationship Specialty Start Date End Date Joelle Silva MD [address] [place] [address] [place] [address] PCP - General Family Medicine 12/27/20 documented as of this encounter
== END 2023-05-14 11:08 | disposition home health service (06) ==
LOC: ASU 08:49 → 3E 08:49
DX: M25.861 Other specified joint disorders, right knee; R73.03 Prediabetes; Z87.891 Personal history of nicotine dependence; M25.461 Effusion, right knee; Z88.8 Allergy status to other drugs, medicaments and biological substances; Z79.899 Other long term (current) drug therapy; M21.161 Varus deformity, not elsewhere classified, right knee; K21.9 Gastro-esophageal reflux disease without esophagitis; I25.10 Atherosclerotic heart disease of native coronary artery without angina pectoris; M87.9 Osteonecrosis, unspecified; I65.23 Occlusion and stenosis of bilateral carotid arteries; I11.9 Hypertensive heart disease without heart failure; Z79.82 Long term (current) use of aspirin; I25.2 Old myocardial infarction; M65.9 Synovitis and tenosynovitis, unspecified; M17.11 Unilateral primary osteoarthritis, right knee; I71.40 Abdominal aortic aneurysm, without rupture, unspecified; Z95.1 Presence of aortocoronary bypass graft

== ENCOUNTER 2024-02-26 21:44 | Observation (INO) ==
--- NOTE | 2024-02-26 21:59 | Emergency Department Note ---
Impression & Plan Atrial fibrillation with rapid ventricular response ADMIT ED Provider Note HPI: History obtained from patient. The patient is a 79-year-old gentleman with history of coronary artery disease, status post CABG, presents the emergency department with a chief complaint of palpitations. Patient states shortly prior to arrival to the ER he was doing some work on a cabinet at his home and he began to feel some mild lightheadedness and a sensation of palpitations in his chest. Patient denies any chest pain. On arrival here to the ED the patient is noted to be in atrial fibrillation on the monitor with a rate of 115. Blood pressures in the 90s. Patient states that he did take 3 nitro tablets prior to arrival because he thought it might help with his symptoms. Patient is saturating well on room air on arrival. ROS: - Per HPI Differential Diagnosis: Arrhythmia to include SVT, atrial fibrillation with RVR, ventricular tachycardia, heart block, acute coronary syndrome, amongst other potential pathologies. *Outpatient medications and allergy history reviewed. PE: General: Alert HEENT: Normocephalic, trachea midline Eyes: Extraocular eye movement is intact, no scleral erythema Pulmonary: Clear to auscultation bilaterally, no wheezing Cardio: Tachycardic rate with irregular rhythm GI: Abdomen is soft to palpation : No suprapubic tenderness MSK: No evidence of trauma or malformation of the extremities, no edema Skin: No evidence of rash Neuro: Alert, no focal deficits Psychiatric: Cooperative INDEPENDENT INTERPRETATIONS: clinical research monitor: (As interpreted by myself): - An order was placed for continuous cardiac monitoring - Patient was noted to be in atrial fibrillation with a rate of 120 EKG: (As interpreted by myself): Rate: 107 Rhythm: Atrial flutter with variable AV block Intervals: QRS 134 ms, otherwise within normal limits ST changes: No ST elevation Time: 2150 EKG #2 (As interpreted by myself): Rate: 69 Rhythm: Normal sinus rhythm Intervals: QRS 132 ms, otherwise within normal limits ST changes: No ST elevation Time: 2232 Chest x-ray: (As interpreted by myself): No acute disease Interventions provided in ED: -IV fluid bolus, aspirin Medical Decision Making: IV was established and lab work obtained, patient was placed on cardiac sonographer. Lab work shows no leukocytosis, hemoglobin stable 13.0, platelet count is slightly reduced at 120, CMP does not show any critical findings, troponin is mildly elevated at 30.7, patient denies any chest pain. I suspect this is likely related to demand ischemia. EKG per my interpretation shows evidence of atrial fibrillation with RVR with a mildly tachycardic rate. Patient did present with mild hypotension in the 90s systolic after taking nitroglycerin at home prior to arrival, he was given IV fluids and eventually did convert back to normal sinus rhythm. Patient was noted however prior to conversion to have an approximately 7-second sinus pause while on the monitor that was symptomatic associated with some lightheadedness. Given new onset atrial fibrillation with sinus pause on the monitor I do think the patient should be admitted for further management in addition to the finding of mildly elevated troponin. I discussed the patient's presentation with the on-call hospitalist, Dr. Harrison, and the patient was placed for admission in stable condition. Consultants/Discussions held with other healthcare providers: -Hospitalist, Dr. Harrison Disposition discussion held by myself with: -Patient Diagnosis: 1. Atrial fibrillation with RVR, transient, acute, new onset 2. Sinus pause, acute, greater than 5 seconds 3. Sensation of palpitations, acute 4. Lightheadedness, acute 5. Elevated high-sensitivity troponin level, acute Disposition: Admission Klever Sherman DO Emergency Medicine Past Med/Surg History Problem List (Updated 02/27/24 @ 00:02 by Klever Sherman DO) Atrial fibrillation with rapid ventricular response (Acute) Recurrent UTI COVID-19 (Acute) Status post right partial knee replacement Postoperative fever (Acute) Orchiectomy (Chronic Unknown) "right testicle " Coronary artery disease (Acute) Urge incontinence Urinary urgency Urinary frequency Right knee DJD Avascular bone necrosis Intractable hiccoughs (Acute) Hx s/p lumbar discectomy at [facility] (03/2015) felt r/t anesthesia > had for 3 days straight, no current issues Lumbar stenosis with neurogenic claudication (Chronic) Gastroesophageal reflux disease (Acute) Dyslipidemia (Acute) BPH (benign prostatic hyperplasia) (Acute) Medical History Encounter for pre-operative examination Hx of basal cell carcinoma Prediabetes CAD (coronary artery disease) Thrombocytopenia Carotid stenosis, bilateral Aneurysm of infrarenal abdominal aorta Myocardial Infarction Hypertension Hx of melanoma of skin Dyslipidemia Gastroesophageal reflux disease Lumbar stenosis with neurogenic claudication Intractable hiccoughs Surgical History Status post right partial knee replacement Hx of bilateral cataract extraction Hx of detached retina repair S/P TURP History of cardiac cath History of esophagogastroduodenoscopy (EGD) Status post Mohs surgery History of colonoscopy S/P lumbar discectomy S/P CABG x 4 History of orchiectomy, unilateral History of appendectomy History of cholecystectomy Family History Other No family history of adverse response to anesthesia Social History Smoking Status: Former smoker Second Hand Exposure: Yes (hx used to smoke); Do You Dip or Chew Tobacco: No; Hx Alcohol Use: No (No ETOH use x 15 years) Hx Substance Use: No Preferred Language: Upper Sorbian Communication Ability: Effective Acid Remover Required: No Beliefs That Will Affect Care: None Current Living Situation: Spouse Feels Safe at Home: Yes Assistive Devices: Walker Allergies Allergies Allergy/AdvReac Type Severity Reaction Status Date / Time solifenacin AdvReac Intermediate constipatio Verified 02/26/24 23:13 n Home Meds Home Medications Medication Instructions Recorded Confirmed cholecalciferol (vitamin D3) 25 25 mcg PO HS 10/08/21 02/26/24 mcg (1,000 unit) tablet (Vitamin D3) coenzyme Q10 100 mg capsule 100 mg PO QAM 10/08/21 02/26/24 (CoQ-10) multivitamin 1 tab PO QAM 10/08/21 02/26/24 rosuvastatin 40 mg tablet (Crestor) 40 mg PO QAM 10/08/21 02/26/24 hydrochlorothiazide 12.5 mg tablet 12.5 mg PO QAM 12/17/22 02/26/24 metronidazole 0.75 % topical cream 1 applic topical DAILY PRN Skin 12/17/22 02/26/24 Irritation atenolol 25 mg tablet 12.5 mg PO QPM 04/15/23 02/26/24 aspirin 81 mg tablet,delayed 81 mg PO DAILY 06/26/23 02/26/24 release (Gus Low Dose Aspirin) magnesium oxide 400 mg PO HS 06/26/23 02/26/24 nitroglycerin 400 mcg/spray 400 mcg sublingual DIRECTED PRN 06/26/23 02/26/24 translingual Chest Pain diazepam 5 mg tablet 5 mg PO TID PRN Anxiety 02/26/24 02/26/24 ketoconazole 2 % topical cream 1 applic topical BID PRN FLARING 02/26/24 02/26/24 ON FACE Results & Data (ED) Vital Signs Vital Signs - 24 hr 02/26/24 21:52 02/26/24 21:57 02/26/24 22:01 Temperature 36.9 C Temperature Source Oral Pulse Rate 111 H 111 H Pulse Rate from SpO2 Sensor Pulse Rhythm Irregular Respiratory Rate 22 Respiratory Effort / Characteristics Non-Labored Spontaneous Respiratory Pattern Regular Blood Pressure 96/73 L 100/74 Blood Pressure Mean 80 82 Blood Pressure Position Lying Pulse Oximetry 94 Oxygen Delivery Method Room Air Sepsis Recent Fever Within 48 Hours No Sepsis New/Unexplained Change in Mental Status No Sepsis Action Taken by Nursing No Action Required 02/26/24 22:03 02/26/24 22:15 02/26/24 22:18 Temperature Temperature Source Pulse Rate 104 H 108 H 119 H Pulse Rate from SpO2 Sensor 93 H 106 H 97 H Pulse Rhythm Respiratory Rate 16 13 16 Respiratory Effort / Characteristics Respiratory Pattern Blood Pressure Blood Pressure Mean Blood Pressure Position Pulse Oximetry 95 95 94 Oxygen Delivery Method Room Air Room Air Room Air Sepsis Recent Fever Within 48 Hours Sepsis New/Unexplained Change in Mental Status Sepsis Action Taken by Nursing 02/26/24 22:31 02/26/24 22:42 02/26/24 22:42 Temperature Temperature Source Pulse Rate 70 Pulse Rate from SpO2 Sensor Pulse Rhythm Respiratory Rate Respiratory Effort / Characteristics Respiratory Pattern Blood Pressure 128/70 128/70 Blood Pressure Mean 79 79 Blood Pressure Position Pulse Oximetry Oxygen Delivery Method Sepsis Recent Fever Within 48 Hours Sepsis New/Unexplained Change in Mental Status Sepsis Action Taken by Nursing 02/26/24 22:42 02/26/24 22:48 02/26/24 23:00 Temperature Temperature Source Pulse Rate 79 80 Pulse Rate from SpO2 Sensor 79 78 Pulse Rhythm Respiratory Rate 18 20 Respiratory Effort / Characteristics Respiratory Pattern Blood Pressure Blood Pressure Mean Blood Pressure Position Pulse Oximetry 97 97 96 Oxygen Delivery Method Room Air Room Air Room Air Sepsis Recent Fever Within 48 Hours Sepsis New/Unexplained Change in Mental Status Sepsis Action Taken by Nursing Laboratory Data 02/26/24 21:55 02/26/24 21:55 Lab Results 02/26/24 Range/Units 21:55 WBC 7.81 (4.8-10.8) K/ul RBC 4.10 L (4.70-6.10) M/uL Hgb 13.0 L (14.0-18.0) g/dl Hct 39.2 L (42.0-52.0) % MCV 95.6 (80.0-100.0) fL MCH 31.7 (25.0-34.0) pg MCHC 33.2 (32.0-36.0) g/dL RDW Std Deviation 46.2 (36.4-46.3) fL RDW Coeff of Romi 13.2 (11.5-14.5) % Plt Count 120 L (130-400) K/uL MPV 9.7 (9.4-12.4) fL Immature Gran % (Auto) 0.4 % Neut % (Auto) 76.8 % Lymph % (Auto) 12.7 % [place] % (Auto) 9.3 % Eos % (Auto) 0.5 % Baso % (Auto) 0.3 % Neut # (Auto) 6.00 (1.40-6.50) K/uL Lymph # (Auto) 0.99 L (1.20-3.40) K/uL [place] # (Auto) 0.73 H (0.11-0.59) K/uL Eos # (Auto) 0.04 (0.00-0.50) K/uL Baso # (Auto) 0.02 (0.00-0.20) K/uL Immature Gran # (Auto) 0.03 (0.01-0.20) K/uL PT 10.9 (9.0-12.0) Seconds INR 1.0 (0.9-1.1) Sodium 141 (136-145) mmol/L Potassium 3.9 (3.5-5.1) mmol/L Chloride 109 H (98-107) mmol/L Carbon Dioxide 27 (21-32) mmol/L Anion Gap 5 (3-11) BUN 31 H (6-23) mg/dl Creatinine 1.28 (0.6-1.4) mg/dl Est Cr Clr Drug Dosing 50.1 ml/min Est GFR ( Amer) 60.4 ml/min Est GFR (Non-Af Amer) 52.1 ml/min BUN/Creatinine Ratio 24.2 H (10-20) Glucose 106 H (70-99(Fasting)) mg/dl Calcium 9.4 (8.6-10.3) mg/dl Magnesium 1.9 (1.7-2.4) mg/dl Total Bilirubin 0.9 (0.2-1.0) mg/dl AST 22 (13-39) U/L ALT 21 (7-52) U/L Alkaline Phosphatase 41 (34-104) U/L Troponin I High Sens 30.7 H (0-20) pg/ml Total Protein 6.7 (6.0-8.3) gm/dl Albumin 4.1 (3.4-5.0) gm/dl Globulin 2.6 (2.5-4.0) gm/dl Albumin/Globulin Ratio 1.6 (0.9-2) TSH 2.709 (0.300-4.500) uIu/ml Administered Medications Discontinued Medications Aspirin (Aspirin Chew 324 Mg) 324 mg PO NOW STA Stop: 02/26/24 23:15 Last Admin: 02/26/24 23:20 Dose: 324 mg Documented By: ALEISHA Sodium Chloride (Nss) 500 mls @ 999 mls/hr IV .Q31M STA Stop: 02/26/24 22:26 Last Infusion: 02/26/24 23:11 Dose: Infused Documented By: Admin: 02/26/24 22:27 Dose: 999 mls/hr Documented By: EDWARD Imaging Data Radiologist's Impression: Chest X-Ray 02/26/24 21:57 SINGLE VIEW CHEST CLINICAL HISTORY: Dysrhythmia FINDINGS: An AP, portable, upright chest radiograph is compared to chest x-ray and chest CT dated 06/26/2023. The patient is status post midline sternotomy. The heart is enlarged noting atherosclerotic calcification of the thoracic aorta. The pulmonary vasculature is noncongested. Emphysema and chronic interstitial thickening is similar to previous. There is bibasilar scarring/atelectasis. No airspace consolidation or large pleural effusion is identified. No pneumothorax is seen. The skeletal structures are osteopenic. The bony thorax is grossly intact. IMPRESSION: Cardiomegaly and emphysema with no active disease in the chest. ACT 112: Negative or not required by law. Electronically signed by: Lawson Portillo M.D. 02/26/2024 10:31 PM Discharge Plan Visit Data Chief Complaint: Arrhythmia/Palpitations Stated Complaint: Afib RVR, Chest Discomfort ED Provider: Klever Sherman Discharge Problem: Atrial fibrillation with rapid ventricular response Forms Stand Alone Forms: [facility] Prescriptions Prescriptions: No Action metronidazole 0.75 % cream 1 applic topical DAILY PRN (Reason: Skin Irritation) hydrochlorothiazide 12.5 mg tablet 12.5 mg PO QAM rosuvastatin [Crestor] 40 mg Tablet 40 mg PO QAM multivitamin Tablet 1 tab PO QAM cholecalciferol (vitamin D3) [Vitamin D3] 25 mcg (1,000 unit) Tablet 25 mcg PO HS coenzyme Q10 [CoQ-10] 100 mg Capsule 100 mg PO QAM atenolol 25 mg tablet 12.5 mg PO QPM nitroglycerin 400 mcg/spray spray,non-aerosol 400 mcg sublingual DIRECTED PRN (Reason: Chest Pain) magnesium oxide 400 mg magnesium Tablet 400 mg PO HS aspirin [Gus Low Dose Aspirin] 81 mg tablet,delayed release (DR/EC) 81 mg PO DAILY Rx Instructions: Take to prevent blood clots. ketoconazole 2 % cream 1 applic TOPICAL BID PRN (Reason: FLARING ON FACE) diazepam 5 mg Tablet 5 mg PO TID PRN (Reason: Anxiety) Referrals Referrals: Joelle Silva MD [Primary Care Provider] -
[2024-02-26] MEDS: SODIUM CHLORIDE 0.9% 500 ML IV STA (22:27)
[2024-02-26 22:29] LABS: Basophils # (auto) 0.02 K/uL (0.00-0.20); Basophils % (auto) 0.3 %; Eosinophils # (auto) 0.04 K/uL (0.00-0.50); Eosinophils % (auto) 0.5 %; Hematocrit (blood only) 39.2 % (42.0-52.0); Immature Granulocytes # (auto) 0.03 K/uL (0.01-0.20); Immature Granulocytes % (auto) 0.4 %; Lymphocytes # (auto) 0.99 K/uL (1.20-3.40); Lymphocytes % (auto) 12.7 %; Mean Corpuscular Hemoglobin 31.7 pg (25.0-34.0); Mean Corpuscular Hgb Conc 33.2 g/dL (32.0-36.0); Mean Corpuscular Volume 95.6 fL (80.0-100.0); Mean Platelet Volume 9.7 fL (9.4-12.4); Monocytes # (auto) 0.73 K/uL (0.11-0.59); Monocytes % (auto) 9.3 %; Neutrophils % (auto) 76.8 %; Platelet Count 120 K/uL (130-400); RDW Coefficient of Variation 13.2 % (11.5-14.5); RDW Standard Deviation 46.2 fL (36.4-46.3); White Blood Count 7.81 K/ul (4.8-10.8)
--- NOTE | 2024-02-26 22:32 | XRay Report ---
SINGLE VIEW CHEST CLINICAL HISTORY: Dysrhythmia FINDINGS: An AP, portable, upright chest radiograph is compared to chest x-ray and chest CT dated . The patient is status post midline sternotomy. The heart is enlarged noting atherosclerotic calcification of the thoracic aorta. The pulmonary vasculature is noncongested. Emphysema and chronic interstitial thickening is similar to previous. There is bibasilar scarring/atelectasis. No airspace consolidation or large pleural effusion is identified. No pneumothorax is seen. The skeletal structu res are osteopenic. The bony thorax is grossly intact. IMPRESSION: Cardiomegaly and emphysema with no active disease in the chest. ACT 112: Negative or not required by law. Electronically signed by: Lawson Portillo M.D. 02/26/2024 10:31 PM
[2024-02-26 22:34] LABS: Albumin Globulin Ratio 1.6 (0.9-2); Albumin Level 4.1 gm/dl (3.4-5.0); BUN Creatinine Ratio 24.2 (10-20); Bilirubin,Total 0.9 mg/dl (0.2-1.0); Calcium 9.4 mg/dl (8.6-10.3); Creatinine Clr Calc Pharmacy 50.1 ml/min; Est GFR (African American) 60.4 ml/min; Est GFR (Non-African American) 52.1 ml/min; Globulin 2.6 gm/dl (2.5-4.0); Magnesium 1.9 mg/dl (1.7-2.4); Potassium 3.9 mmol/L (3.5-5.1); Total Protein 6.7 gm/dl (6.0-8.3)
[2024-02-26 22:40] LABS: Troponin I High Sensitivity 30.7 pg/ml (0-20)
[2024-02-26 22:50] LABS: Thyroid Stimulating Hormone 2.709 uIu/ml (0.300-4.500)
[2024-02-26] MEDS: ASPIRIN CHEW 324 MG PO STA (23:20)
[2024-02-26 23:45] LABS: Prothrombin Time 10.9 Seconds (9.0-12.0)
[2024-02-27] MEDS: MAGNESIUM SULFATE / D5W 1 GM/100 ML BAG IV STA (00:04)
[2024-02-27] MEDS ORDERED: Heparin IV Adult Wt-Based Low-Dose *NO* INITIAL Bolus Protocol IV STA (00:08)
--- NOTE | 2024-02-27 01:01 | History & Physical Report ---
Date of Service February 27, 2024 Assessment & Plan (1) Tachy-carleen syndrome: Plan: Patient presented with new onset A-fib symptoms followed by symptomatic bradycardia (sinus pause) Patient currently NSR. Troponin elevation secondary to above hx CAD status post CABG PVD hypertension, BP currently stable hyperlipidemia on statin Rx prediabetes, hemoglobin A1c of 6 last September 2022 chronic anemia, hemoglobin at baseline chronic thrombocytopenia past tobacco abuse Admit to PCU IV heparin for thromboembolic prophylaxis given PAF Hold home beta-saeed for now given episodic sinus pause. Atropine as needed symptomatic bradycardia TTE, Cardiology consult Re: PAF, sinus pause, possible DBS N.p.o. until patient seen by cardiology in anticipation of procedure DVT prophylaxis. Heparin Full code Patient requests for to be given updates regarding care. Ms. Ann Clemons (contact #[phone]). Text document was generated using [employer] voice recognition software. It may contain grammatical or spelling errors. Kindly contact undersigned for clarification of any documentation item in question. History of Present Illness Chief Complaint: Palpitations Primary Care Provider: Joelle Silva MD History obtained from patient and records. Medical history significant for CAD status post CABG, PVD, hypertension, hyperlipidemia, prediabetes, GERD, chronic anemia (baseline hemoglobin of 13), chronic thrombocytopenia, skin cancer as per records, past tobacco abuse. Last confinement May 2023 under Orthopedics service for elective right knee surgery. No postop complications. Patient experienced palpitations last night while working on a cabinet at home. More exertion than usual. Denies actual chest pain or shortness of breath. Watch heart rate noted to be high at 140s. Palpitations unresponsive to nitro intake at home. Patient noted to be in rapid A-fib upon arrival at the ER. Transient SBP of 90s. Sinus pause noted on the monitor. Patient felt weak during episode. No chest pain, no SOB, no syncope. Patient currently comfortable. Medical History as above Surgical History : Knee surgery, cataract surgeries, retina surgery, TURP, skin cancer surgery, back surgery, CABG, orchiectomy, appendectomy, cholecystectomy Family History : DM, RA Personal/Social history : Past tobacco abuse, rare EtOH intake, lives with Allergies Allergy/AdvReac Type Severity Reaction Status Date / Time solifenacin AdvReac Intermediate constipatio Verified 02/26/24 23:13 n Home Medications Medication Instructions Recorded Confirmed Type cholecalciferol (vitamin D3) 25 25 mcg PO HS 10/08/21 02/26/24 History mcg (1,000 unit) tablet (Vitamin D3) coenzyme Q10 100 mg capsule 100 mg PO QAM 10/08/21 02/26/24 History (CoQ-10) multivitamin 1 tab PO QAM 10/08/21 02/26/24 History rosuvastatin 40 mg tablet (Crestor) 40 mg PO QAM 10/08/21 02/26/24 History hydrochlorothiazide 12.5 mg tablet 12.5 mg PO QAM 12/17/22 02/26/24 History metronidazole 0.75 % topical cream 1 applic topical DAILY PRN Skin 12/17/22 02/26/24 History Irritation atenolol 25 mg tablet 12.5 mg PO QPM 04/15/23 02/26/24 History aspirin 81 mg tablet,delayed 81 mg PO DAILY 06/26/23 02/26/24 History release (Gus Low Dose Aspirin) magnesium oxide 400 mg PO HS 06/26/23 02/26/24 History nitroglycerin 400 mcg/spray 400 mcg sublingual DIRECTED PRN 06/26/23 02/26/24 History translingual Chest Pain diazepam 5 mg tablet 5 mg PO TID PRN Anxiety 02/26/24 02/26/24 History ketoconazole 2 % topical cream 1 applic topical BID PRN FLARING 02/26/24 02/26/24 History ON FACE Past Med/Surg History Problem List (Updated 02/27/24 @ 02:13 by Flavio Harrison MD) Tachy-carleen syndrome Atrial fibrillation with rapid ventricular response (Acute) Recurrent UTI COVID-19 (Acute) Status post right partial knee replacement Postoperative fever (Acute) Orchiectomy (Chronic Unknown) "right testicle " Coronary artery disease (Acute) Urge incontinence Urinary urgency Urinary frequency Right knee DJD Avascular bone necrosis Intractable hiccoughs (Acute) Hx s/p lumbar discectomy at [facility] (03/2015) felt r/t anesthesia > had for 3 days straight, no current issues Lumbar stenosis with neurogenic claudication (Chronic) Gastroesophageal reflux disease (Acute) Dyslipidemia (Acute) BPH (benign prostatic hyperplasia) (Acute) Medical History Encounter for pre-operative examination Hx of basal cell carcinoma Prediabetes CAD (coronary artery disease) Thrombocytopenia Carotid stenosis, bilateral Aneurysm of infrarenal abdominal aorta Myocardial Infarction Hypertension Hx of melanoma of skin Dyslipidemia Gastroesophageal reflux disease Lumbar stenosis with neurogenic claudication Intractable hiccoughs Surgical History Status post right partial knee replacement Hx of bilateral cataract extraction Hx of detached retina repair S/P TURP History of cardiac cath History of esophagogastroduodenoscopy (EGD) Status post Mohs surgery History of colonoscopy S/P lumbar discectomy S/P CABG x 4 History of orchiectomy, unilateral History of appendectomy History of cholecystectomy Family History Other No family history of adverse response to anesthesia Social History Smoking Status: Never smoker Second Hand Exposure: Yes (hx used to smoke); Do You Dip or Chew Tobacco: No; Hx Alcohol Use: No Hx Substance Use: No Preferred Language: Turkish Communication Ability: Effective Medical Van Driver Required: No Beliefs That Will Affect Care: None Current Living Situation: Spouse Feels Safe at Home: Yes Assistive Devices: Glasses Review of Systems Review of Systems: As per HPI, all other systems reviewed and negative Physical Exam Physical Exam: GENERAL: Comfortable, pleasant, obese, no respiratory distress SKIN: Normal color, warm HEENT: Alopecia, pink palpebral conjunctivae, no ptosis, dry buccal mucosa NECK : Supple, no tenderness CHEST : CTA, no tenderness HEART : RRR, no obvious murmurs ABDOMEN: Some distention, nontender EXTREMITIES : Minimal LE swelling with prominent varicosities, without tenderness, no other conspicuous deformities noted NEUROLOGIC : Coherent, no facial asymmetry, no other gross focality Results & Data Results & Data Vital Signs (Past 12 Hours) Vital Signs Temp Pulse Resp BP Pulse Ox O2 Del Method 02/26/24 23:00 96 Room Air 02/26/24 22:48 80 20 97 Room Air 02/26/24 22:42 79 18 97 Room Air 02/26/24 22:42 128/70 02/26/24 22:42 128/70 02/26/24 22:31 70 02/26/24 22:18 119 H 16 94 Room Air 02/26/24 22:15 108 H 13 95 Room Air 02/26/24 22:03 104 H 16 95 Room Air 02/26/24 22:01 100/74 02/26/24 21:57 111 H 02/26/24 21:52 36.9 C 111 H 22 96/73 L 94 Room Air Laboratory Results Laboratory Results WBC 7.81 K/ul (4.8-10.8) 02/26/24 21:55 RBC 4.10 M/uL (4.70-6.10) L 02/26/24 21:55 Hgb 13.0 g/dl (14.0-18.0) L 02/26/24 21:55 Hct 39.2 % (42.0-52.0) L 02/26/24 21:55 MCV 95.6 fL (80.0-100.0) 02/26/24 21:55 MCH 31.7 pg (25.0-34.0) 02/26/24 21:55 MCHC 33.2 g/dL (32.0-36.0) 02/26/24 21:55 RDW Std Deviation 46.2 fL (36.4-46.3) 02/26/24 21:55 RDW Coeff of Romi 13.2 % (11.5-14.5) 02/26/24 21:55 Plt Count 120 K/uL (130-400) L 02/26/24 21:55 MPV 9.7 fL (9.4-12.4) 02/26/24 21:55 Immature Gran % (Auto) 0.4 % 02/26/24 21:55 Neut % (Auto) 76.8 % 02/26/24 21:55 Lymph % (Auto) 12.7 % 02/26/24 21:55 [place] % (Auto) 9.3 % 02/26/24 21:55 Eos % (Auto) 0.5 % 02/26/24 21:55 Baso % (Auto) 0.3 % 02/26/24 21:55 Neut # (Auto) 6.00 K/uL (1.40-6.50) 02/26/24 21:55 Lymph # (Auto) 0.99 K/uL (1.20-3.40) L 02/26/24 21:55 [place] # (Auto) 0.73 K/uL (0.11-0.59) H 02/26/24 21:55 Eos # (Auto) 0.04 K/uL (0.00-0.50) 02/26/24 21:55 Baso # (Auto) 0.02 K/uL (0.00-0.20) 02/26/24 21:55 Immature Gran # (Auto) 0.03 K/uL (0.01-0.20) 02/26/24 21:55 PT 10.9 Seconds (9.0-12.0) 02/26/24 21:55 INR 1.0 (0.9-1.1) 02/26/24 21:55 Sodium 141 mmol/L (136-145) 02/26/24 21:55 Potassium 3.9 mmol/L (3.5-5.1) 02/26/24 21:55 Chloride 109 mmol/L (98-107) H 02/26/24 21:55 Carbon Dioxide 27 mmol/L (21-32) 02/26/24 21:55 Anion Gap 5 (3-11) 02/26/24 21:55 BUN 31 mg/dl (6-23) H 02/26/24 21:55 Creatinine 1.28 mg/dl (0.6-1.4) 02/26/24 21:55 Est Cr Clr Drug Dosing 50.1 ml/min 02/26/24 21:55 Est GFR ( Amer) 60.4 ml/min 02/26/24 21:55 Est GFR (Non-Af Amer) 52.1 ml/min 02/26/24 21:55 BUN/Creatinine Ratio 24.2 (10-20) H 02/26/24 21:55 Glucose 106 mg/dl (70-99(Fasting)) H 02/26/24 21:55 Calcium 9.4 mg/dl (8.6-10.3) 02/26/24 21:55 Magnesium 1.9 mg/dl (1.7-2.4) 02/26/24 21:55 Total Bilirubin 0.9 mg/dl (0.2-1.0) 02/26/24 21:55 AST 22 U/L (13-39) 02/26/24 21:55 ALT 21 U/L (7-52) 02/26/24 21:55 Alkaline Phosphatase 41 U/L (34-104) 02/26/24 21:55 Troponin I High Sens 36.2 pg/ml (0-20) H 02/27/24 00:02 Total Protein 6.7 gm/dl (6.0-8.3) 02/26/24 21:55 Albumin 4.1 gm/dl (3.4-5.0) 02/26/24 21:55 Globulin 2.6 gm/dl (2.5-4.0) 02/26/24 21:55 Albumin/Globulin Ratio 1.6 (0.9-2) 02/26/24 21:55 TSH 2.709 uIu/ml (0.300-4.500) 02/26/24 21:55 Impressions Chest X-Ray 02/26/24 21:57 SINGLE VIEW CHEST CLINICAL HISTORY: Dysrhythmia FINDINGS: An AP, portable, upright chest radiograph is compared to chest x-ray and chest CT dated 06/26/2023. The patient is status post midline sternotomy. The heart is enlarged noting atherosclerotic calcification of the thoracic aorta. The pulmonary vasculature is noncongested. Emphysema and chronic interstitial thickening is similar to previous. There is bibasilar scarring/atelectasis. No airspace consolidation or large pleural effusion is identified. No pneumothorax is seen. The skeletal structures are osteopenic. The bony thorax is grossly intact. IMPRESSION: Cardiomegaly and emphysema with no active disease in the chest. ACT 112: Negative or not required by law. Electronically signed by: Lawson Portillo M.D. 02/26/2024 10:31 PM Diagnostic Findings EKG as per my interpretation :Rate 70, NSR, normal axis, RBBB, no ischemia
[2024-02-27] MEDS ORDERED: PROMETHAZINE 6.25 MG/50.25 ML BAG IV PRN (01:04)
[2024-02-27] MEDS ORDERED: NITROGLYCERIN SL 0.4 MG/TAB TAB SL PRN (01:04)
[2024-02-27 01:23] LABS: Partial Thromboplastin Time 27 Seconds (21-31)
[2024-02-27] MEDS: HEPARIN SODIUM/DEXTROSE 25,000 UNITS/500 ML BAG IV SCH (01:33)
[2024-02-27] MEDS ORDERED: ATROPINE SULFATE 0.1 MG/ML 10ML SYR IV PRN (01:48)
[2024-02-27] MEDS: LACTATED RINGER'S 1,000 ML IV STA (02:06)
[2024-02-27] MEDS ORDERED: diazePAM 5 MG TABLET PO PRN (02:13)
--- OUTSIDE RECORDS SUMMARY | 2024-02-27 04:50 | External Medical Summary | Summary of Care ---
Author Name Unknown Organization [facility] Address [address] [place] [address] Phone [phone] Care Team Providers Care Manager Small Business Name Role Phone Joelle Silva MD Primary Care Provide r Reason for Visit * Reason Comments Follow Up Right ring finger fr acture f/u * Evaluate & Treat - Unlimited Visits (Within 10 days (routine)) - Authorized Specialty Diagnoses / Procedures Referred By Tabby jimenez Referred To Contact Orthopaedic Surgery / Orthopedics Diagnoses Pain of finger of right hand Joelle Silva MD [address] [place] [address] [place] [address] Referral ID Status Reason Start Date Expiration Date Visits Requested Visits Authorized [id number] Authorized Specialty Services Required 12/18/2023 [id number] Encounter Details Date Type Department Care Team (Late st Contact Info) Description 02/03/2024 9:00 AM EDT Office Visit Orthopaedics [facility] [address] [place] [address] Sharer, Marley Jimenez PA-C [address] [place] [address] Closed nondisplaced fracture of distal phalanx of right ring finger with routine healing, subsequent encounter* Allergies Active Allergy Reactions Criticality Noted Date Comments Solifenacin Succinate 03/17/2014 Severe obstipation summer 2012 documented as of this encounter (statuses as of 02/03/2024) Medications Medication Sig Dispensed Refills Start Date End Date Status MULTI-DAY TABS OR 0 10/22/2001 Active COENZYME Q10 100 MG PO TABS one tablet by mouth daily Active ASPIRIN 81 MG PO CHEW take one tablet daily 100 Tab 3 08/16/2014 Active Calcium Carbonate Antacid 500 MG Oral Tablet Chewable Take 2 Tablets by mouth daily as needed (dyspepsia). 03/17/2015 Active Cholecalciferol (VITAMIN D) 2000 units Capsule at bedtime. Take one daily 03/04/2017 Active diazePAM 5 MG Oral Tablet (Valium)Indications:G eneralized anxiety disorder Take by mouth 1 Tablet daily as needed for Anxiety. 30 Tablet 10/04/2021 Active Magnesium 200 MG Oral Tablet Take 2 Tablets by mouth at bedtime. Active hydroCHLOROthiazide 12.5 MG Oral Capsule (Hydrodiuril)Indicati ons:HTN, goal below 140/90 Take 1 Capsule by mouth in the morning. 90 Capsule 3 05/15/2023 Active Atenolol 25 MG Oral Tablet (Tenormin)Indications :HTN, goal below 140/90 Take 1 Tablet by mouth in the morning. 90 Tablet 3 05/19/2023 Active Nitroglycerin 0.4 MG/SPRAY Translingual Solution (Nitrolingual)Indicat ions:Chronic ischemic heart disease,Coronary artery disease involving [place] coronary artery of [place] heart without angina pectoris 1 spray under tongue every 5 minutes up to 3 doses in 15 minutes 4.9 g 5 06/10/2023 Active Fenofibrate Micronized 134 MG Oral CapsuleIndications:Dy slipidemia, goal LDL below 100 Take 1 Capsule by mouth in the morning. Every morning.. 90 Capsule 1 11/03/2023 Active Rosuvastatin Calcium 40 MG Oral Tablet (Crestor)Indications: Dyslipidemia, goal LDL below 70 Take 1 Tablet by mouth in the morning. 90 Tablet 1 11/03/2023 Active Cephalexin 500 MG Oral CapsuleIndications:Cl osed nondisplaced fracture of distal phalanx of right ring finger with routine healing, subsequent encounter Take 1 Capsule by mouth in the morning and 1 Capsule at noon and 1 Capsule in the evening and 1 Capsule before bedtime. 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), basal cell carcinoma L nasolabial fold 03/16, L post auricular region 08/19) Hx of actinic keratosis 05/14/2021 Overview: HAKs, AKs Asymptomatic bilateral carotid artery stenosis 0 04/04/2021 Thrombocytopenia 12/27/2020 History of kidney stones 03/29/2019 Prediabetes 08/19/2017 Overview: Per Prediabetes protocol #1 Coronary artery disease invo lving [place] coronary artery of [place] heart without angina pectoris 04/02/2016 History of melanoma in situ 01/04/2016 Overview: central forehead 09/19 Hypomagnesemia 03/21/2015 BPH with obstruction/lower urinary tract symptom s 02/04/2012 ADVANCE DIRECTIVE INFORMATION 06/11/2010 Dyslipidemia, goal LDL below 70 06/13/2009 Overview: Per Lipid Taxonomy. GENERALIZED ANXIETY DIS Aneurysm of infrarenal abdominal aorta HTN, goal below 140/90 Lumbar spinal stenosis Overview: s/p lumbar decompression documented as of this encounter (statuses as of 02/03/2024) Resolved Problems Problem Noted Date Diagnosed Date Resolved Date Esophageal reflux 07/22/2019 07/22/2019 History of nonmelanoma skin cancer 09/08/2018 05/14/2021 Kidney disease, chronic, sta ge III (GFR 30-59 ml/min) 02/19/2016 03/14/2016 Overview: Per CKD protocol #1 Other chest pain 03/24/2009 02/16/2015 elevated bilirubin 01/20/2004 5 Mixed dyslipidemia 12/09/2000 9 Overview: Per Lipid Taxonomy. Calculus of kidney 9 CHR ISCHEMIC HRT DIS NOS documented as of this encounter (statuses as of 02/03/2024) Immunizations Name Administration Dates Next Due COVID-19 mRNA, LNP-s, No Pre serve, 2-Dose Series (Pfizer) 05/02/2021,09/15/2020,08/25/2020 Pneumococcal Conjugate Vacc, 13 Valent (Prevnar) 03/21/2015 Pneumococcal Polysaccharide PPV23 (Pneumovax) 12/05/2009 Season Influenza, Quad, PF, Adjuvanted, 65+ Yrs, IM (FLUAD) 03/15/2020 Seasonal Influenza Virus Vac cine, Unspecified Formulation 04/22/2006 Seasonal Influenza, PF, 6 M & above, IM , (FluLaval or Fluzone) 04/15/2018,04/16/2017 Seasonal Influenza, Quadriva lent Hd (Fluzone [...] Date Smoking Tobacco: Former Cigarettes 1 44 0 03/07/1956 - 03/07/1998 Smokeless Tobacco: Never Comments:quit smoking in 199 8 Alcohol Use Standard Drinks/Week Comments Not Currently 0 (1 standard drink = 0.6 oz pure alcohol) very rare, whiskey or beer once a yr PHQ-2 Answer Date Recorded PHQ Adult Total Score 0 02/21/2023 Hunger Vital Sign Answer Date Recorded Within the past 12 months, y ou worried that your food would run out before you got the money to buy more. Patient declined Within the past 12 months, t he food you bought just didn't last and you didn't have money to get more. Patient declined Sex and Gender Information Value Date Recorded Sex Assigned at Male 01/20/2019 8:57 AM EDT Gender Identity Male 01/20/2019 8:57 AM EDT Sexual Orientation Straight 02/07/2022 9: 38 AM EDT Job Start Date Occupation Industry Not on file Not on file Not on file documented as of this encounter Progress Notes * Sharer, Marley Jimenez PA-C - 02/03/2024 9:23 AM EDT Jorgito Clemons is a 78 year old male who presents for consultation to [facility] for right hand injury/pain. Consult requested by Self. Jorgito Clemons is here unaccompanied History: Patient is a 78 year old right handed male presents for 6-week follow-up of distal right ring finger fracture. Injury occurred on 12/18/2023. Patient has been immobilized in a aluminum foam splint which he has been wearing more consistently over the past few weeks. Review of systems: All others negative except those noted above in HPI. Past Medical History: Diagnosis Date Aneurysm of infrarenal abdominal aorta (HCC) Calculus of kidney Coronary atherosclerosis CABG 1997 PALENCIA-LAD, SVG-OM2, SVG-PDA-RCA Coronary atherosclerosis of [place] coronary artery CATH 1997 40% LAD, 40% Cx(sep. origins), diffuse 90% RCA. Cath 03/08 PALENCIA-LAD patent, SVG-CxOM patent, SVG(seq)-RCA(patent)-PDA 100%, LAD MLI, cx 70%, RCA 100 Esophageal reflux Generalized anxiety disorder HTN, goal below 140/90 Lumbar spinal stenosis s/p lumbar decompression Mixed dyslipidemia Family History Problem Relation Name Age of Onset Diabetes Mother Diabetes Grandmother (Maternal) Musculo-skeletal Disorder Brother rheumatoid arthritis Social History Socioeconomic History Marital status: Spouse name: Not on file Number of children: Not on file Years of education: Not on file Highest education level: Not on file Occupational History Not on file Tobacco Use Smoking status: Former Current packs/day: 0.00 Average packs/day: 1 pack/day for 44.0 years (44.0 ttl pk-yrs) Types: Cigarettes Start date: [birth year]/07/1956 Quit date: 03/07/1998 Years since quittin.9 Smokeless tobacco: Never Tobacco comments: quit smoking in 1997 Vaping Use Vaping status: Never Used Substance and Sexual Activity Alcohol use: Not Currently Comment: very rare, whiskey or beer once a yr Drug use: No Sexual activity: Yes Other Topics Concern Not on file Social History Narrative Social Determinants of Health Financial Resource Strain: Not on file Food Insecurity: Unknown (10/01/2022) Hunger Vital Sign Worried About Running Out of Food in the Last Year: Patient declined Ran Out of Food in the Last Year: Patient declined Transportation Needs: Not on file Social Connections: Unknown (02/03/2024) Social Connections How often do you feel lonely or isolated from those around you? (Adult - for ages 18 years and over): Not on file Housing Stability: Not on file Past Surgical History: Procedure Laterality Date CABG, ARTERIAL, FOUR OR MORE 07/07/1997 CABG, Arterial, Four+ CATHETERIZE LEFT HEART THRU SKIN 03/27/2009 LEFT HEART CATH, PERCUTANEOUS performed by KATHARINE NOLAN at [facility] COLONOSCOPY 09/12/2010 polyp--repeat 5 years CXR 2 VIEWS AP/PA & LATERAL 03/29/2001 PAH, Impression: No active disease Mild cardiomegaly DECOMPRESS LUMBAR SPINAL CORD SEG 03/08/2015 lumbar decomp--Lani EGD, FLEXIBLE, W/BIOPSY 09/12/2010 dr peguero IOF MRI LUMBAR SPINE WO CONTRAST 01/20/2015 HNP L4-5, infrarenal AAA MISCELLANEOUS ORDER 07/07/1961 right testicle removed LA TRURL ELECTROSURG RESCJ PROSTATE BLEED COMPLETE 10/11/2021 Dr. Bojorquez REMOVAL OF APPENDIX 07/07/1958 REMOVE GALLBLADDER 07/07/1999 US AORTA 02/24/2008 normal Physical Exam There were no vitals filed for this visit. Estimated body mass index is 30.91 kg/m as calculated from the following: Height as of 04/07/23: 1.708 m (5' 7.24"). Weight as of 04/07/23: 90.2 kg (198 lb 12.8 oz). General: generally well-nourished and in no acute distress HEENT: normocephalic, atraumatic, sclera anicteric. Psych: mood and affect normal , cooperative Card: Peripheral pulses: normal in affected extremity (s) Resp: equal chest rise, non-tachypneic, non-labored breathing Skin: no rash, normal Neuro: Coordination: normal; Sensation: normal on affected extremity (s) MSK: Hand Exam, Bilateral Inspection: Mild swelling right distal ring finger with faint erythema along the distal digit. Skinis intact. Palpation: mild tenderness along the distal digit right ring finger Range of Motion: Range of motion: limited in flexion of the DIP joint secondary to swelling Rotation, angulation, or crossover: no Strength: Flex - 5/5 Ext - 5/5 Radiology (I have personally reviewed the following films): X-ray of the right hand was reviewed with patient. Those x-rays reveal stable appearing healing fracture of the distal phalanx right ring finger Assessment and Plan: Closed nondisplaced fracture of distal phalanx of right ring finger with routine healing, subsequent encounter (Primary) Fracture of phalanx of finger - XR FINGERS 2 OR MORE VIEWS Recommend continue immobilization in aluminum foam splint which he may remove for gentle ROM exercises and hygiene purposes. Advised to remain strictly nonweightbearing. He will follow up in 3-4 weeks with repeat x-rays. Follow Up: Return for finger fx f/u in 3-4 weeks . | For: finger fx f/u in 3-4 weeks Marley Nick PA-C Orthopaedics [address] [place] [phone] documented in this encounter Nursing Notes * Peng Isbell ATC - 02/03/2024 9:06 AM EDT Right ring finger fracture f/u. DOI: 12/18/2023 Patient states he has been wearing his brace more consistently. No pain today. documented in this encounter Plan of Treatment Upcoming Encounters Date Type Department Care Team (Late st Contact Info) Description 02/25/2024 11:00 AM EDT Office Visit Orthopaedics [facility] [address] [place] [address] SharerMarley PA-C [address] [place] [address] 02/26/2024 10:30 AM EDT Nurse Only Ancillary [address] [place] [address] [place], Nurse Annual [address] [place] [address] 10/01/2024 8:00 AM EDT Office Visit Family Medicine [address] [place] [phone] Joelle Silva MD [address] [place] [address] [place] [address] Pending Results Name Type Priority Associated Diagnoses Date /Time XR FINGERS 2 OR MORE VIEWS Medical Imaging Routine Closed nondisplaced fracture of distal phalanx of right ring finger with routine healing, subsequent encounter 02/03/2024 9:25 AM EDT Health Maintenance Due Date Last Done Comments COVID-19 Vaccine ( season) 2023 05/09/2022, 03/05/2022, 05/02/2021, Additional history exists HbA1c 10/05/2023 10/04/2022, 04/0 11/2021, 12/27/2020, Additional history exists Depression Screening 02/22/2024 02/21/2023 Influenza Vaccine (FLU shot) (#1) 2024 04/07/2023, 04/05/2022, 04/04/2021, Additional history exists GFR 10/20/2024 10/21/2023, 11/06, 10/04/2022, Additional history exists Albumin/Creatinine Ratio 10/04/2025 10/04/2022, 12/06 DTaP,Tdap,and Td Vaccines (2 - Td or Tdap) 11/29/2026 11/29/2016, 10/11/2008 Pneumococcal Vaccine: 65+ Years Completed 03/21/2015, 12/05/2009, 08/19/2002 Zoster Vaccines Completed 04/06/2019, 01/05, 01/10/2012 HPV (Gardasil) Vaccine Aged Out No lo nger eligible based on patient's age to complete this topic Hepatitis B Vaccine Aged Out No longe r eligible based on patient's age to complete this topic MENINGOCOCCAL (MENACTRA/MENVEO) Aged Out No longer eligible based on patient's age to complete this topic documented as of this encounter Medical Devices Not on filedocumented as of this encounter Visit Diagnoses Diagnosis Closed nondisplaced fracture of distal phalanx of right ring finger with routine healing, subsequent encounter- Primary documented in this encounter Care Teams Manager Small Business Relationship Specialty Start Date End Date Joelle Silva MD [address] [place] [address] [place] [address] PCP - General Family Medicine 12/27/20 documented as of this encounter
--- OUTSIDE RECORDS SUMMARY | 2024-02-27 04:50 | External Medical Summary | Summary of Care ---
Author Name Unknown Organization [facility] Address [address] [place] [address] Phone [phone] Care Team Providers Care Battery Test Engineer Name Role Phone Joelle Silva MD Primary Care Provide r Reason for Visit * Reason Comments Follow Up R Hand Ring finger Encounter Details Date Type Department Care Team (Late st Contact Info) Description 02/25/2024 11:00 AM EDT Office Visit Orthopaedics [facility] [address] [place] [address] Sharer, Marley Jimenez PA-C [address] [place] [address] Closed nondisplaced fracture of distal phalanx of right ring finger with routine healing, subsequent encounter* Allergies Active Allergy Reactions Criticality Noted Date Comments Solifenacin Succinate 03/17/2014 Severe obstipation summer 2012 documented as of this encounter (statuses as of 02/25/2024) Medications Medication Sig Dispensed Refills Start Date [...] ions:Chronic ischemic heart disease,Coronary artery disease involving [place] coronary artery of [place] heart without angina pectoris 1 spray under [...] as of this encounter (statuses as of 02/25/2024) Active Problems Problem Noted Date Diagnosed Date S/P TURP 10/03/2022 S/P CABG (coronary artery bypass graft) 04/05/20 22 Hx of nonmelanoma skin cancer 05/14/2021 Overview: 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), basal cell carcinoma L nasolabial fold 03/16, L post auricular region 08/19) Hx of actinic keratosis 05/14/2021 Overview: HASilvestre, AKs Asymptomatic bilateral carotid artery stenosis 0 04/04/2021 Thrombocytopenia 12/27/2020 History of kidney stones 03/29/2019 Prediabetes 08/19/2017 Overview: Per Prediabetes protocol #1 Coronary artery disease invo lving [place] coronary artery of [place] heart without angina pectoris 04/02/2016 History of [...] as of this encounter (statuses as of 02/25/2024) Resolved Problems Problem Noted Date Diagnosed Date [...] as of this encounter (statuses as of 02/25/2024) Immunizations Name Administration Dates Next Due COVID-19 mRNA, LNP-s, No Pre serve, 2-Dose Series (eVendor Check) 05/02/2021,09/15/2020,08/25/2020 Pneumococcal Conjugate Vacc, 13 Valent (Prevnar) [...] Notes * Sharer, Marley Jimenez PA-C - 02/25/2024 11:16 AM EDT Jorgito Clemons is a 78 year old male who presents for consultation to [facility] for right hand injury/pain. Consult requested by Self. Jorgito Clemons is here unaccompanied History: Patient is a 78 year old right handed male presents for 9 week follow-up of distal right ring finger fracture. Injury occurred on 12/18/2023. Patient has been immobilized in a aluminum foam splint which he is removing for ROM exercises. He has no pain currently. Review of systems: All others negative except those noted above in HPI. Past Medical History: Diagnosis Date Aneurysm of infrarenal abdominal aorta (HCC) Calculus of kidney Coronary atherosclerosis CABG 1997 PALENCIA-LAD, SVG-OM2, SVG-PDA-RCA Coronary atherosclerosis of [place] coronary artery CATH 1997 40% LAD, 40% Cx(sep. ), diffuse 90% RCA. Cath 03/08 PALENCIA-LAD patent, [...] Needs: Not on file Social Connections: Unknown (02/25/2024) Social Connections How often do you feel lonely or isolated from those around you? (Adult - for ages 18 years and over): Not on file Housing Stability: Not on file Past Surgical History: Procedure Laterality Date CABG, ARTERIAL, FOUR OR MORE 07/07/1997 CABG, Arterial, Four+ CATHETERIZE LEFT HEART THRU SKIN 03/27/2009 LEFT HEART CATH, PERCUTANEOUS performed by KATHARINE NOLAN at [facility] 09/12/2010 polyp--repeat 5 years CXR 2 VIEWS AP/PA & LATERAL 03/29/2001 PAH, Impression: No active disease Mild cardiomegaly DECOMPRESS LUMBAR SPINAL CORD SEG 03/08/2015 lumbar decomp--Lani EGD, FLEXIBLE, W/BIOPSY 09/12/2010 dr peguero IOF MRI LUMBAR SPINE WO CONTRAST 01/20/2015 HNP L4-5, infrarenal AAA MISCELLANEOUS ORDER 07/07/1961 right testicle removed AR TRURL ELECTROSURG RESCJ PROSTATE BLEED COMPLETE 10/11/2021 [...] extremity (s) MSK: Hand Exam, Bilateral Inspection: No swelling or ecchymosis. Skin is intact. Palpation: no tenderness along the distal digit right ring finger Range of Motion: Range of motion: Rotation, angulation, or crossover: no Strength: Flex [...] XR FINGERS 2 OR MORE VIEWS Recommend continued immobilization in aluminum foam splint which he may remove for light activitiesand gentle ROM exercises. He will follow up in 3-4 weeks with repeat x-rays if painful. Follow Up: Return for finger fx f/u in 1 month . | For: finger fx f/u in 1 month Marley Nick PA-C Orthopaedics [address] [place] [address] documented in this encounter Nursing Notes * Ernestina Santana LPN - 02/25/2024 10:52 AM EDT f/u Closed nondisplaced fracture of distal phalanx of right ring finger Repeat xray today DOI: 12/17/23Pt crushed R ring finger in Lawn equipment Pt denies pain today Pt is unaccompanied today Yenifer Abbott LPN documented in this encounter Plan of Treatment Upcoming Encounters Date Type Department Care Team (Late st Contact Info) Description 03/10/2024 10:00 AM EDT Nurse Only Ancillary [address] [place] [phone] [place]en, Nurse Annual Wellness [address] [place] [address] [place] [address] 03/30/2024 11:00 AM EDT Office Visit Orthopaedics [facility] [address] [place] [address] Sharer, Marley Jimenez PA-C [address] [place] [address] 10/01/2024 8:00 AM EDT Office Visit Family Medicine [address] [place] [phone] Joelle Silva MD [address] [place] [address] [place] [address] Pending Results Name Type Priority Associated Diagnoses Date /Time XR FINGERS 2 OR MORE VIEWS Medical Imaging Routine Closed nondisplaced fracture of distal phalanx of right ring finger with routine healing, subsequent encounter 02/25/2024 11:04 AM EDT Health Maintenance Due Date Last Done Comments COVID-19 Vaccine ( season) 2023 05/09/2022, 03/05/2022, 05/02/2021, Additional history exists HbA1c 10/05/2023 10/04/2022, 04/0 11/2021, 12/27/2020, Additional history exists Adult Wellness Visit 02/22/2024 02/21/2023, 02/20/2022, 02/19/2021 Depression Screening 02/22/2024 02/21/2023 Influenza Vaccine (FLU [...] Primary documented in this encounter Care Teams Battery Test Engineer Relationship Specialty Start Date End Date Joelle Silva MD [address] [place] [address] [place] [phone] PCP - General Family Medicine 12/27/20 documented as of this encounter
--- NOTE | 2024-02-27 08:22 | Electrocardiogram Report ---
Test Reason : Blood Pressure : */* mmHG Vent. Rate : 107 BPM Atrial Rate : 278 BPM P-R Int : * ms QRS Dur : 134 ms QT Int : 366 ms P-R-T Axes : 262 58 30 degrees QTcB Int : 488 ms Atrial flutter with variable A-V block Right bundle branch block Abnormal ECG When compared with ECG of 26-Jun-2023 16:24, Atrial flutter has replaced Sinus rhythm HR has increased by 29 bpm Confirmed by Wilson Gonzales ([id number]) on 02/27/2024 8:21:59 AM Referred By: REFERRED SELF Confirmed By: Wilson Gonzales
--- NOTE | 2024-02-27 08:23 | Electrocardiogram Report ---
Test Reason : Blood Pressure : */* mmHG Vent. Rate : 69 BPM Atrial Rate : 69 BPM P-R Int : 150 ms QRS Dur : 132 ms QT Int : 398 ms P-R-T Axes : 38 69 49 degrees QTcB Int : 426 ms Normal sinus rhythm Right bundle branch block Abnormal ECG When compared with ECG of 26-Feb-2024 21:50, Sinus rhythm has replaced Atrial flutter Vent. rate has decreased by 38 bpm Confirmed by Wilson Gonzales ([id number]) on 02/27/2024 8:22:57 AM Referred By: REFERRED SELF Confirmed By: Wilson Gonzales
[2024-02-27 08:46] LABS: Basophils # (auto) 0.01 K/uL (0.00-0.20); Basophils % (auto) 0.2 %; Eosinophils # (auto) 0.08 K/uL (0.00-0.50); Eosinophils % (auto) 1.5 %; Hematocrit (blood only) 35.6 % (42.0-52.0); Hemoglobin 11.9 g/dl (14.0-18.0); Immature Granulocytes # (auto) 0.03 K/uL (0.01-0.20); Immature Granulocytes % (auto) 0.6 %; Lymphocytes # (auto) 1.38 K/uL (1.20-3.40); Lymphocytes % (auto) 26.6 %; Mean Corpuscular Hemoglobin 31.6 pg (25.0-34.0); Mean Corpuscular Hgb Conc 33.4 g/dL (32.0-36.0); Mean Corpuscular Volume 94.7 fL (80.0-100.0); Mean Platelet Volume 9.8 fL (9.4-12.4); Monocytes # (auto) 0.55 K/uL (0.11-0.59); Monocytes % (auto) 10.6 %; Neutrophils # (auto) 3.13 K/uL (1.40-6.50); Neutrophils % (auto) 60.5 %; Platelet Count 107 K/uL (130-400); RDW Coefficient of Variation 13.2 % (11.5-14.5); Red Blood Count 3.76 M/uL (4.70-6.10); White Blood Count 5.18 K/ul (4.8-10.8)
[2024-02-27 08:51] LABS: ANTI-Xa, UFH(UnfractionatedHep 0.32 IU/ml (0.3-0.7)
[2024-02-27 09:17] LABS: BUN Creatinine Ratio 30.2 (10-20); Calcium 8.4 mg/dl (8.6-10.3); Creatinine Clr Calc Pharmacy 74.5 ml/min; Est GFR (African American) 94.3 ml/min; Est GFR (Non-African American) 81.3 ml/min; Potassium 3.9 mmol/L (3.5-5.1)
[2024-02-27 09:23] LABS: Troponin I High Sensitivity 22.9 pg/ml (0-20)
[2024-02-27] MEDS: ASPIRIN 81 MG ECTAB PO SCH (09:40)
[2024-02-27] MEDS: ROSUVASTATIN CALCIUM 20 MG TAB PO SCH (09:41)
[2024-02-27] MEDS: MULTIVITAMIN TAB PO SCH (09:42)
--- NOTE | 2024-02-27 09:54 | Cardiology Consultation ---
Date of Consultation February 27, 2024 Assessment & Plan (1) Atrial flutter with rapid ventricular response: (2) Tachy-carleen syndrome: (3) CAD (coronary artery disease), [place] coronary artery: Plan 79-year-old male presents with new onset atrial flutter. 6 seconds symptomatic conversion pauses recorded. Findings suggest tachybradycardia syndrome. Beta- saeed currently on hold. Recommend electrophysiology consultation to consider permanent pacemaker implantation. This will allow for titration of beta-saeed therapy and possible antiarrhythmic therapy if needed in the future. Continue IV heparin at this time. Plan transition to Eliquis 5 mg twice daily post proce dure. Continue other cardiovascular medications as ordered. I spent a total of 60 minutes on the date of service in preparation, delivery, and documentation of the care provided to this patient, excluding any time spent in the performance of separately billed services. History of Present Illness Attending Physician: Chuck Rushing MD History of Present Illness 79-year-old male presents emergency department due to palpitations. Atrial flutter confirmed per ECG and telemetry. Patient converted to sinus rhythm last night with a significant postconversion pause of approximately 6 seconds. He was symptomatic at the time of conversion. Denies any recent lightheadedness, dizziness, syncope, or near syncope. Remains in sinus rhythm this morning. Beta-saeed placed on hold due to resting bradycardia. Patient reports heart rates down into the 40s at home w ithout associated lightheadedness or dizziness. IV heparin infusion due to new diagnosis of atrial flutter. Prior to admission patient walking up to 1 mile daily with his dog. Denies any exertional chest pain or unusual shortness of breath. No recent lightheadedness, dizziness, syncope, or near syncope. Cardiac history includes coronary artery disease with prior bypass surgery in 1997, chronic sinus bradycardia, 4.0 cm abdominal aortic aneurysm, moderate bilateral carotid stenosis and dyslipidemia. Allergies Allergy/AdvReac Type Severity Reaction Status Date / Time solifenacin AdvReac Intermediate constipatio Verified 02/26/24 23:13 n Home Medications Medication Instructions Recorded Confirmed Type cholecalciferol (vitamin D3) 25 25 mcg PO HS 10/08/21 02/26/24 History mcg (1,000 unit) tablet (Vitamin D3) coenzyme Q10 100 mg capsule 100 mg PO QAM 10/08/21 02/26/24 History (CoQ-10) multivitamin 1 tab PO QAM 10/08/21 02/26/24 History rosuvastatin 40 mg tablet (Crestor) 40 mg PO QAM 10/08/21 02/26/24 History hydrochlorothiazide 12.5 mg tablet 12.5 mg PO QAM 12/17/22 02/26/24 History metronidazole 0.75 % topical cream 1 applic topical DAILY PRN Skin 12/17/22 02/26/24 History Irritation atenolol 25 mg tablet 12.5 mg PO QPM 04/15/23 02/26/24 History aspirin 81 mg tablet,delayed 81 mg PO DAILY 06/26/23 02/26/24 History release (Gus Low Dose Aspirin) magnesium oxide 400 mg PO HS 06/26/23 02/26/24 History nitroglycerin 400 mcg/spray 400 mcg sublingual DIRECTED PRN 06/26/23 02/26/24 History translingual Chest Pain diazepam 5 mg tablet 5 mg PO TID PRN Anxiety 02/26/24 02/26/24 History ketoconazole 2 % topical cream 1 applic topical BID PRN FLARING 02/26/24 02/26/24 History ON FACE Patient History Medical History Encounter for pre-operative examination Hx of basal cell carcinoma Prediabetes CAD (coronary artery disease) s/p CABG x4 (1997) Follows with [facility] cardio Thrombocytopenia Hx noted per records Carotid stenosis, bilateral Carotid duplex 02/2023: B/L ICA stenosis 50-69% stenosis Aneurysm of infrarenal abdominal aorta Abdominal Aorta Duplex 02/2023: 3.9cm AAA Follows with [facility] cardio Myocardial Infarction R/t complications with attempted cardiac stent placement, "had to then have a CABG"- 1997 Hypertension Hx of melanoma of skin Surgical History Hx of bilateral cataract extraction Hx of detached retina repair Right eye S/P TURP TURP (10/11/21): LMA#5 at [facility]. No noted anesthesia complications per post-op anesthesia progress note. History of cardiac cath total 3 cardiac caths, most recent 2006 History of esophagogastroduodenoscopy (EGD) Status post Mohs surgery Melanoma and BCC excision History of colonoscopy S/P lumbar discectomy Dr Garibay at [facility] S/P CABG x 4 CABGx4 (1997) History of orchiectomy, unilateral History of appendectomy History of cholecystectomy Family History Other No family history of adverse response to anesthesia Social History Smoking Status: Never smoker Second Hand Exposure: Yes (hx used to smoke); Do You Dip or Chew Tobacco: No; Hx Alcohol Use: No Hx Substance Use: No Preferred Language: [place] Leonean Communication Ability: Effective Noise Tester Required: No Beliefs That Will Affect Care: None Current Living Situation: Spouse Feels Safe at Home: Yes Safety Concerns: Feels Safe At This Time Assistive Devices: Glasses Review of Systems Review of Systems: All systems reviewed & are unremarkable except as noted in Subjective Physical Exam Constitutional: well nourished; no acute distress Respiratory: no respiratory distress, no labored breathing and no retractions Cardiovascular: Rate/Rhythm: regular rate and regular rhythm Heart Sounds: normal S1, normal S2 and + murmur (1/6 LOUIE) Vessels: no JVD Extremities: + edema (Trace to mild bilateral ankle edema.) Gastrointestinal (Abdomen): Inspection/Auscultation: normal bowel sounds; abdomen not distended Percussion/Palpation: abdomen soft; abdomen nontender, no guarding and abdomen not rigid Neurologic: CN's II-XI intact bilaterally and moves all extremities Results & Data Vital Signs (Past 12 Hours) Vital Signs Temp Pulse Resp BP Pulse Ox Pulse Ox O2 Del Method 02/27/24 09:03 53 L 16 99 02/27/24 09:00 130/75 02/27/24 09:00 130/75 02/27/24 08:57 63 16 98 02/27/24 08:09 49 L 19 98 02/27/24 08:00 54 L 15 134/70 95 02/27/24 07:17 59 L 02/27/24 06:42 50 L 15 94 02/27/24 06:00 122/66 02/27/24 06:00 53 L 21 122/66 02/27/24 05:00 54 L 18 107/59 L 02/27/24 04:03 50 L 13 104/50 L 02/27/24 02:57 51 L 15 102/47 L 97 Room Air 02/27/24 02:19 97 02/27/24 02:00 62 20 111/58 L 95 Room Air 02/27/24 01:09 73 16 119/61 96 Room Air 02/27/24 00:00 79 16 111/69 99 Room Air 02/26/24 23:00 96 Room Air 02/26/24 22:48 80 20 97 Room Air 02/26/24 22:42 79 18 97 Room Air 02/26/24 22:42 128/70 02/26/24 22:42 128/70 02/26/24 22:31 70 02/26/24 22:18 119 H 16 94 Room Air 02/26/24 22:15 108 H 13 95 Room Air 02/26/24 22:03 104 H 16 95 Room Air 02/26/24 22:01 100/74 02/26/24 21:57 111 H 02/26/24 21:52 36.9 C 111 H 22 96/73 L 94 Room Air O2 Del Method 02/27/24 09:03 02/27/24 09:00 02/27/24 09:00 02/27/24 08:57 02/27/24 08:09 02/27/24 08:00 02/27/24 07:17 02/27/24 06:42 02/27/24 06:00 02/27/24 06:00 02/27/24 05:00 02/27/24 04:03 02/27/24 02:57 02/27/24 02:19 Room Air 02/27/24 02:00 02/27/24 01:09 02/27/24 00:00 02/26/24 23:00 02/26/24 22:48 02/26/24 22:42 02/26/24 22:42 02/26/24 22:42 02/26/24 22:31 02/26/24 22:18 02/26/24 22:15 02/26/24 22:03 02/26/24 22:01 02/26/24 21:57 02/26/24 21:52 Laboratory Results Cardiac Enzymes 02/26/24 02/27/24 02/27/24 Range/Units 21:55 00:02 07:46 AST 22 (13-39) U/L Troponin I High Sens 30.7 H 36.2 H 22.9 H D (0-20) pg/ml Coagulation 02/26/24 Range/Units 21:55 PT 10.9 (9.0-12.0) Seconds APTT 27 (21-31) Seconds CBC 02/26/24 02/27/24 Range/Units 21:55 07:46 WBC 7.81 5.18 (4.8-10.8) K/ul RBC 4.10 L 3.76 L (4.70-6.10) M/uL Hgb 13.0 L 11.9 L (14.0-18.0) g/dl Hct 39.2 L 35.6 L (42.0-52.0) % Plt Count 120 L 107 L (130-400) K/uL Neut # (Auto) 6.00 3.13 (1.40-6.50) K/uL Lymph # (Auto) 0.99 L 1.38 (1.20-3.40) K/uL [place] # (Auto) 0.73 H 0.55 (0.11-0.59) K/uL Eos # (Auto) 0.04 0.08 (0.00-0.50) K/uL Baso # (Auto) 0.02 0.01 (0.00-0.20) K/uL Comprehensive Metabolic Panel 02/26/24 02/27/24 Range/Units 21:55 07:46 Sodium 141 141 (136-145) mmol/L Potassium 3.9 3.9 (3.5-5.1) mmol/L Chloride 109 H 110 H (98-107) mmol/L Carbon Dioxide 27 26 (21-32) mmol/L BUN 31 H 26 H (6-23) mg/dl Creatinine 1.28 0.86 D (0.6-1.4) mg/dl Glucose 106 H 101 H (70-99(Fasting)) mg/dl Calcium 9.4 8.4 L (8.6-10.3) mg/dl AST 22 (13-39) U/L ALT 21 (7-52) U/L Alkaline Phosphatase 41 (34-104) U/L Total Protein 6.7 (6.0-8.3) gm/dl Albumin 4.1 (3.4-5.0) gm/dl Intake and Output 02/26/24 02/27/24 02/27/24 22:59 06:59 14:59 Intake Total 600 / 600 Output Total 300 / 300 Balance 300 / 300 Intake: IV 600 / 600 Magnesium Sulfate / D5w 1 gm In 100 / 100 100 ml @ 50 mls/hr IV ONE STA Rx#:[id number] Sodium Chloride 0.9% 500 ml @ 500 / 500 999 mls/hr IV .Q31M STA Rx#: [id number] Output: Urine 300 / 300 Other: Weight 92.9 kg Weight Measurement Method Built in [facility] (3) CAD (coronary artery disease), [place] coronary artery [place] vs. transplanted heart: [place] heart Associated angina: with stable angina Qualified Code(s): I25.118 - Atherosclerotic heart disease of [place] coronary artery with other forms of angina pectoris
--- NOTE | 2024-02-27 10:28 | Cardiology Consultation ---
Date of Consultation February 27, 2024 Assessment & Plan (1) Atrial flutter with rapid ventricular response: (2) Tachy-carleen syndrome: (3) Coronary artery disease: Plan 1. Atrial flutter: We could potentially treat his atrial flutter with ablation, although the majority of these patients end up with atrial fibrillation in addition and if rate control is not an option due to resting bradycardia a pacemaker is a reasonable option. He clearly has sinus node dysfunction and an indication for beta-blockade (abdominal aortic aneurysm, coronary disease). 2. Tachybradycardia syndrome: He has evidence of sinus node dysfunction and now atrial flutter with rapid ventricular response. Having a pacemaker in place would simplify his management and allow use of appropriate medications for his cardiovascular issues. 3. Coronary disease: He has known coronary artery disease, appropriate rate control would be beneficial in the use of beta-blockade in the setting is indicated. I discussed the indications, procedure, risks and alternatives of pacemaker implantation with him and he understands and agrees to proceed. I also discussed sedation and he agrees. He has been on heparin so his bleeding risk to slightly elevated. He understands. Consent for the procedure and for sedation signed. History of Present Illness Reason for Consultation: Tachybradycardia syndrome Attending Physician: Chuck Rushing MD History of Present Illness This is an 79-year-old male with a history of coronary artery disease and bypass surgery 1997 as well as longstanding sinus bradycardia. He also has an abdominal aortic aneurysm and carotid stenosis. An echocardiogram done today shows normal left ventricular systolic function with an ejection fraction of 60 to 65%, mild concentric left ventricular hypertrophy and a dilated left atrium. Minor valvular abnormalities. At home he reported heart rates in the 40s, his beta-saeed had been reduced due to bradycardia. He may have had some lightheadedness and dizziness, he presented to the emergency room on February 26, 2024 with a feeling of palpitation s symptoms of starting around 7:30 PM which continued following presentation. He was having some lightheadedness with this. On arrival in the emergency room he was in atrial a flutter with variable AV conduction with a heart rate of 115 bpm. He then converted to sinus bradycardia with a symptomatic 6-second pause with prolonged sinus node recovery. He does walk regularly and denies exertional angina, he notes his heart rate will get up to about 80 or 85 bpm which is somewhat reduced. Allergies Allergy/AdvReac Type Severity Reaction Status Date / Time solifenacin AdvReac Intermediate constipatio Verified 02/26/24 23:13 n Home Medications Medication Instructions Recorded Confirmed Type cholecalciferol (vitamin D3) 25 25 mcg PO HS 10/08/21 02/26/24 History mcg (1,000 unit) tablet (Vitamin D3) coenzyme Q10 100 mg capsule 100 mg PO QAM 10/08/21 02/26/24 History (CoQ-10) multivitamin 1 tab PO QAM 10/08/21 02/26/24 History rosuvastatin 40 mg tablet (Crestor) 40 mg PO QAM 10/08/21 02/26/24 History hydrochlorothiazide 12.5 mg tablet 12.5 mg PO QAM 12/17/22 02/26/24 History metronidazole 0.75 % topical cream 1 applic topical DAILY PRN Skin 12/17/22 02/26/24 History Irritation atenolol 25 mg tablet 12.5 mg PO QPM 04/15/23 02/26/24 History aspirin 81 mg tablet,delayed 81 mg PO DAILY 06/26/23 02/26/24 History release (Gus Low Dose Aspirin) magnesium oxide 400 mg PO HS 06/26/23 02/26/24 History nitroglycerin 400 mcg/spray 400 mcg sublingual DIRECTED PRN 06/26/23 02/26/24 History translingual Chest Pain diazepam 5 mg tablet 5 mg PO TID PRN Anxiety 02/26/24 02/26/24 History ketoconazole 2 % topical cream 1 applic topical BID PRN FLARING 02/26/24 02/26/24 History ON FACE Patient History Medical History Encounter for pre-operative examination Hx of basal cell carcinoma Prediabetes CAD (coronary artery disease) s/p CABG x4 (1997) Follows with [facility] cardio Thrombocytopenia Hx noted per records Carotid stenosis, bilateral Carotid duplex 02/2023: B/L ICA stenosis 50-69% stenosis Aneurysm of infrarenal abdominal aorta Abdominal Aorta Duplex 02/2023: 3.9cm AAA Follows with [facility] Myocardial Infarction R/t complications with attempted cardiac stent placement, "had to then have a CABG"- 1997 Hypertension Hx of melanoma of skin Surgical History Hx of bilateral cataract extraction Hx of detached retina repair Right eye S/P TURP TURP (10/11/21): LMA#5 at [facility]. No noted anesthesia complications per post-op anesthesia progress note. History of cardiac cath total 3 cardiac caths, most recent 2006 History of esophagogastroduodenoscopy (EGD) Status post Mohs surgery Melanoma and BCC excision History of colonoscopy S/P lumbar discectomy Dr Garibay at [facility] S/P CABG x 4 CABGx4 (1997) History of orchiectomy, unilateral History of appendectomy History of cholecystectomy Family History Other No family history of adverse response to anesthesia Social History Smoking Status: Never smoker Second Hand Exposure: Yes (hx used to smoke); Do You Dip or Chew Tobacco: No; Hx Alcohol Use: No Hx Substance Use: No Preferred Language: [place] Communication Ability: Effective Paper Products Supervisor Required: No Beliefs That Will Affect Care: None Current Living Situation: Spouse Feels Safe at Home: Yes Safety Concerns: Feels Safe At This Time Assistive Devices: Glasses Review of Systems Review of Systems: All systems reviewed & are unremarkable except as noted in HPI & below Physical Exam Physical Exam: Constitutional: Alert, cooperative and in no distress. HEENT: Unremarkable Neck: No jugular venous distention, carotid pulses are normal and equal bilaterally without bruits. Pulmonary: Clear to auscultation bilaterally. Cardiac: Regular slow rhythm with no murmur, gallop or rub. Abdomen: Soft, nontender with normal bowel sounds. Extremities: No edema. Distal pulses intact. Neurologic: No focal findings. Gait is steady. Skin: No rash, ecchymoses or petechiae. Results & Data Vital Signs (Past 12 Hours) Vital Signs Pulse Resp BP Pulse Ox Pulse Ox O2 Del Method O2 Del Method 02/27/24 09:03 53 L 16 99 02/27/24 09:00 130/75 02/27/24 09:00 130/75 02/27/24 08:57 63 16 98 02/27/24 08:09 49 L 19 98 02/27/24 08:00 54 L 15 134/70 95 02/27/24 07:17 59 L 02/27/24 06:42 50 L 15 94 02/27/24 06:00 122/66 02/27/24 06:00 53 L 21 122/66 02/27/24 05:00 54 L 18 107/59 L 02/27/24 04:03 50 L 13 104/50 L 02/27/24 02:57 51 L 15 102/47 L 97 Room Air 02/27/24 02:19 97 Room Air 02/27/24 02:00 62 20 111/58 L 95 Room Air 02/27/24 01:09 73 16 119/61 96 Room Air 02/27/24 00:00 79 16 111/69 99 Room Air 02/26/24 23:00 96 Room Air 02/26/24 22:48 80 20 97 Room Air 02/26/24 22:42 79 18 97 Room Air 02/26/24 22:42 128/70 02/26/24 22:42 128/70 02/26/24 22:31 70 Laboratory Results Cardiac Enzymes 02/26/24 02/27/24 02/27/24 Range/Units 21:55 00:02 07:46 AST 22 (13-39) U/L Troponin I High Sens 30.7 H 36.2 H 22.9 H D (0-20) pg/ml Coagulation 02/26/24 Range/Units 21:55 PT 10.9 (9.0-12.0) Seconds APTT 27 (21-31) Seconds CBC 02/26/24 02/27/24 Range/Units 21:55 07:46 WBC 7.81 5.18 (4.8-10.8) K/ul RBC 4.10 L 3.76 L (4.70-6.10) M/uL Hgb 13.0 L 11.9 L (14.0-18.0) g/dl Hct 39.2 L 35.6 L (42.0-52.0) % Plt Count 120 L 107 L (130-400) K/uL Neut # (Auto) 6.00 3.13 (1.40-6.50) K/uL Lymph # (Auto) 0.99 L 1.38 (1.20-3.40) K/uL [place] # (Auto) 0.73 H 0.55 (0.11-0.59) K/uL Eos # (Auto) 0.04 0.08 (0.00-0.50) K/uL Baso # (Auto) 0.02 0.01 (0.00-0.20) K/uL Comprehensive Metabolic Panel 02/26/24 02/27/24 Range/Units 21:55 07:46 Sodium 141 141 (136-145) mmol/L Potassium 3.9 3.9 (3.5-5.1) mmol/L Chloride 109 H 110 H (98-107) mmol/L Carbon Dioxide 27 26 (21-32) mmol/L BUN 31 H 26 H (6-23) mg/dl Creatinine 1.28 0.86 D (0.6-1.4) mg/dl Glucose 106 H 101 H (70-99(Fasting)) mg/dl Calcium 9.4 8.4 L (8.6-10.3) mg/dl AST 22 (13-39) U/L ALT 21 (7-52) U/L Alkaline Phosphatase 41 (34-104) U/L Total Protein 6.7 (6.0-8.3) gm/dl Albumin 4.1 (3.4-5.0) gm/dl Intake and Output 02/26/24 02/27/24 02/27/24 22:59 06:59 14:59 Intake Total 600 / 600 Output Total 300 / 300 Balance 300 / 300 Intake: IV 600 / 600 Magnesium Sulfate / D5w 1 gm In 100 / 100 100 ml @ 50 mls/hr IV ONE STA Rx#:[id number] Sodium Chloride 0.9% 500 ml @ 500 / 500 999 mls/hr IV .Q31M STA Rx#: [id number] Output: Urine 300 / 300 Other: Weight 92.9 kg Weight Measurement Method Built in [facility] Diagnostic Findings Telemetry: I reviewed telemetry, he was in atrial flutter and had conversion with very long recovery of sinus rhythm. He had a 6-second pause terminated by a junctional beat with a continued junctional rhythm for another 6 or 7 seconds before normal rhythm resumed. PG Care Time/CCT Total # of Minutes Spent Total Time Spent with Patient: Total time spent is greater than 50% in coordination of care (as documented) at patient's floor/unit and/or counseling patient: Coding Level of Care Code 68050 INT INP/OBS CARE MIN Diagnoses Atrial flutter with rapid ventricular response I48.92 Tachy-carleen syndrome I49.5 Coronary artery disease involving autologous artery coronary bypass graft without angina pectoris I25.810 Associated angina: without angina Coronary Disease-Associated Artery/Lesion type: bypass graft, autologous artery (3) Coronary artery disease Associated angina: without angina Coronary Disease-Associated Artery/Lesion type: bypass graft, autologous artery Qualified Code(s): I25.810 - Atherosclerosis of coronary artery bypass graft(s) without angina pectoris
--- NOTE | 2024-02-27 11:35 | Pre Anesthesia Assessment ---
Date of Service February 27, 2024 Pre Sedation Assessment Vital Signs Temp Pulse Resp BP Pulse Ox Pulse Ox O2 Del Method 02/27/24 11:00 125/70 02/27/24 10:45 47 L 13 96 02/27/24 10:00 124/65 02/27/24 10:00 50 L 13 96 02/27/24 09:03 53 L 16 99 02/27/24 09:00 130/75 02/27/24 09:00 130/75 02/27/24 08:57 63 16 98 02/27/24 08:09 49 L 19 98 02/27/24 08:00 54 L 15 134/70 95 02/27/24 07:17 59 L 02/27/24 06:42 50 L 15 94 02/27/24 06:00 122/66 02/27/24 06:00 53 L 21 122/66 02/27/24 05:00 54 L 18 107/59 L 02/27/24 04:03 50 L 13 104/50 L 02/27/24 02:57 51 L 15 102/47 L 97 Room Air 02/27/24 02:19 97 02/27/24 02:00 62 20 111/58 L 95 Room Air 02/27/24 01:09 73 16 119/61 96 Room Air 02/27/24 00:00 79 16 111/69 99 Room Air 02/26/24 23:00 96 Room Air 02/26/24 22:48 80 20 97 Room Air 02/26/24 22:42 79 18 97 Room Air 02/26/24 22:42 128/70 02/26/24 22:42 128/70 02/26/24 22:31 70 02/26/24 22:18 119 H 16 94 Room Air 02/26/24 22:15 108 H 13 95 Room Air 02/26/24 22:03 104 H 16 95 Room Air 02/26/24 22:01 100/74 02/26/24 21:57 111 H 02/26/24 21:52 36.9 C 111 H 22 96/73 L 94 Room Air O2 Del Method 02/27/24 11:00 02/27/24 10:45 02/27/24 10:00 02/27/24 10:00 02/27/24 09:03 02/27/24 09:00 02/27/24 09:00 02/27/24 08:57 02/27/24 08:09 02/27/24 08:00 02/27/24 07:17 02/27/24 06:42 02/27/24 06:00 02/27/24 06:00 02/27/24 05:00 02/27/24 04:03 02/27/24 02:57 02/27/24 02:19 Room Air 02/27/24 02:00 02/27/24 01:09 02/27/24 00:00 02/26/24 23:00 02/26/24 22:48 02/26/24 22:42 02/26/24 22:42 02/26/24 22:42 02/26/24 22:31 02/26/24 22:18 02/26/24 22:15 02/26/24 22:03 02/26/24 22:01 02/26/24 21:57 02/26/24 21:52 Cardiovascular RRR, no murmur, no edema Respiratory normal respiratory effort, lungs clear to auscultation Pre-Sedation Airway Assessment Smoking Status: Never smoker Mallampati Class: III ASA: ASA3 NPO Status Date of Last Intake of Fluids: 02/26/24 Date of Last Intake of Solid Food: 02/26/24 Procedure Planning Contraindications for Sedation: none Current Medications Reviewed: Yes Notes The planned sedation has been discussed with the patient. Informed Consent was obtained. I have identified the patient, determined the appropriateness of sedation and have assessed the patient immediately prior to the procedure. All medicine(s) and interventions are by my order.
[2024-02-27] MEDS: LIDOCAINE 1% LOCAL 20 ML VIAL ONE (12:20)
[2024-02-27] MEDS: ceFAZolin 330 MG/ML 1 GM VIAL ONE (12:21)
[2024-02-27] MEDS: VANCOMYCIN HCL 1000MG/20ML VIAL ONE (12:21)
[2024-02-27] MEDS: WATER, STERILE FOR INJ 10 ML VIAL ONE (12:21)
[2024-02-27] MEDS: fentaNYL citrate PF 100 MCG/2 ML VIAL ONE ×2 (13:13→13:14)
[2024-02-27] MEDS: MIDAZOLAM HCL 1 MG/ML 2ML VIAL ONE ×3 (13:13→13:14)
[2024-02-27] MEDS ORDERED: ACETAMINOPHEN W/CODEINE #3 1 TAB PO PRN (13:19)
--- NOTE | 2024-02-27 13:19 | Electrophysiology Report ---
Date of Service February 27, 2024 Electrophysiology Procedure Electrophysiology Procedure Report Preoperative diagnosis: Tachybradycardia syndrome Postoperative diagnosis: Same Procedure: Dual-chamber left bundle branch pacemaker implantation Surgeon: Vincent Barrett MD Estimated blood loss: 20 cc Complications: None Disposition: Telephone Surveyor recovery Procedure details: After obtaining informed consent for the procedure, the patient was brought to the laboratory and prepped and draped in the standard sterile manner. The left prepectoral region was anesthetized with 1% lidocaine local anesthetic and left axillary venipuncture was performed by percutaneous technique and a guidewire placed through the left subclavian vein into the superior vena cava. The area was further infiltrated with 1% lidocaine local anesthetic and a 5 cm incision was made parallel to the left clavicle and 2 cm below it and carried down to the anterior pectoralis fascia. A pacemaker pocket was formed by blunt dissection anterior to the pectoralis fascia and a vancomycin-soaked sponge was placed in the pocket. A 9 [place] Med[employer] lead introducer was placed over the guidewire into the left subclavian vein, the dilator and guidewire were removed and a bipolar active fixation steroid tipped atrial lead was advanced through the introducer into the superior vena cava. A guidewire was placed through the introducer and the introducer was stripped from the lead and guidewire. A 7 [place] Medtronic lead introducer was placed over the guidewire into the left subclavian vein, the dilator and guidewire were removed. A C315 His 02 septal sheath was advanced through the introducer over a guidewire and advanced into the right ventricular outflow tract. The guidewire and dilator were removed and the sheath was positioned in a mid septal location. A bipolar active fixation steroid tipped ventricular lead was advanced through the introducer and rotated to advance the screw into the septum. Septal penetration was confirmed by electrogram morphology. Pacing and sensing thresholds were evaluated in bipolar configuration and are noted on the data sheet. The septal sheath was stripped away from the lead. Using a curved stylette the atrial lead was positioned in the region of the atrial appendage and the screw extended fixing the lead in position. Pacing and sensing thresholds were evaluated in bipolar configuration and are recorded on the implant data sheet. Once the leads were in position they were attached to the anterior pectoralis fascia using 2 sutures of 2-0 silk around each lead collar. The vancomycin soaked sponge was removed from the pocket, hemostasis was obtained, the pacemaker was attached to the leads and placed in the pocket with the leads coiled beneath it. The incision was closed with a running double subcutaneous closure of 3-0 Vicryl absorbable suture, followed by running subcuticular skin closure of 4-0 Vicryl absorbable suture. Bacitracin ointment was placed on the incision and a dressing applied. [facility] Electrophysiology codes Indication for Procedure (1) Tachy-carleen syndrome: Pacing Procedure 1: Pacin Insert/Replace Pacer A & V PG Moderate Sedation Codes Moderate Sedation Codes Procedure 1: Sedation/Anesthesia: 63147 Mod Sedation by the same physician;Init15 Min Child Age 5 & Up Procedure 2: Sedation/Anesthesia: 70278 Mod Sedation by the same physician; Ea [id number] Minutes
--- NOTE | 2024-02-27 13:49 | Post Anesthesia Assessment ---
Date of Service February 27, 2024 Post Sedation Assessment Vital Signs Temp Pulse Pulse Resp BP BP Pulse Ox 02/27/24 13:20 60 16 136/64 92 02/27/24 11:00 125/70 02/27/24 10:45 47 L 13 96 02/27/24 10:00 124/65 02/27/24 10:00 50 L 13 96 02/27/24 09:03 53 L 16 99 02/27/24 09:00 130/75 02/27/24 09:00 130/75 02/27/24 08:57 63 16 98 02/27/24 08:09 49 L 19 98 02/27/24 08:00 54 L 15 134/70 95 02/27/24 07:17 59 L 02/27/24 06:42 50 L 15 94 02/27/24 06:00 122/66 02/27/24 06:00 53 L 21 122/66 02/27/24 05:00 54 L 18 107/59 L 02/27/24 04:03 50 L 13 104/50 L 02/27/24 02:57 51 L 15 102/47 L 97 02/27/24 02:19 02/27/24 02:00 62 20 111/58 L 95 02/27/24 01:09 73 16 119/61 96 02/27/24 00:00 79 16 111/69 99 02/26/24 23:00 96 02/26/24 22:48 80 20 97 02/26/24 22:42 79 18 97 02/26/24 22:42 128/70 02/26/24 22:42 128/70 02/26/24 22:31 70 02/26/24 22:18 119 H 16 94 02/26/24 22:15 108 H 13 95 02/26/24 22:03 104 H 16 95 02/26/24 22:01 100/74 02/26/24 21:57 111 H 02/26/24 21:52 36.9 C 111 H 22 96/73 L 94 Pulse Ox O2 Del Method O2 Del Method 02/27/24 13:20 Room Air 02/27/24 11:00 02/27/24 10:45 02/27/24 10:00 02/27/24 10:00 02/27/24 09:03 02/27/24 09:00 02/27/24 09:00 02/27/24 08:57 02/27/24 08:09 02/27/24 08:00 02/27/24 07:17 02/27/24 06:42 02/27/24 06:00 02/27/24 06:00 02/27/24 05:00 02/27/24 04:03 02/27/24 02:57 Room Air 02/27/24 02:19 97 Room Air 02/27/24 02:00 Room Air 02/27/24 01:09 Room Air 02/27/24 00:00 Room Air 02/26/24 23:00 Room Air 02/26/24 22:48 Room Air 02/26/24 22:42 Room Air 02/26/24 22:42 02/26/24 22:42 02/26/24 22:31 02/26/24 22:18 Room Air 02/26/24 22:15 Room Air 02/26/24 22:03 Room Air 02/26/24 22:01 02/26/24 21:57 02/26/24 21:52 Room Air Recovery Score Activity: Moves 4 extremities Respiration: Deep Breath/Cough Circulation: +/-20% PreAnes Value Consciousness: Fully Awake Oxygen Saturation: > 92% On Room Air Post Anesthesia Score: 10 Discharge Sedation Level of Care: Fast Track Phase II Post Sedation Plan On clinical assessment, the patient appears to have tolerated the sedation without complications. Patient is recovering as anticipated. Patient will continue to be monitored by nursing and may be discharged when sedation discharge criteria are met per below protocol. Upon Completions of procedure up to 15 minutes continue every 5 minute vital signs and the P.A.R. score; then discharge to a Phase I or Fast Track to Phase II per the following guidelines: * Discharge Patient to appropriate Phase II area if PAR is 8 or greater or return to pre- procedure baseline. The post - procedure orders will be as directed. * If PAR score is less than 8 or not return to pre-procedure baseline then patient will follow Phase I monitoring till PAR is reached for Phase II. The Phase I may be done in procedure room or may call to secure a Phase I area. * If naloxone or flumazenil are used for reversal, hold in Phase I for continued monitoring from when last reversal dose was given for a minimum of 60 minutes or longer pending the nurse and/or physician discretion of patient condition before discharge to Phase II. Please call the Sedation Physician to re-evaluate and complete post-note for discharge to Phase II area. Do NOT discharge from procedure sedation or Phase 1 until post- sedation evaluation note is complete by procedure /sedation MD Sedation Discharge Instructions to be given to the patient at discharge to home.
--- NOTE | 2024-02-27 17:07 | Hospitalist Progress Note ---
Date of Service February 27, 2024 delayed entry date of service noted above Assessment & Plan (1) Tachy-carleen syndrome: Plan: per admitting service notes with addendum: Patient presented with new onset A-fib symptoms followed by symptomatic bradycardia (sinus pause) - s/p pacemaker placement today - continue to monitor closely in PCU Troponin elevation secondary to above hx CAD status post CABG PVD hypertension, BP currently stable hyperlipidemia on statin Rx prediabetes, hemoglobin A1c of 6 last September 2022 chronic anemia, hemoglobin at baseline chronic thrombocytopenia past tobacco abuse DVT prophylaxis. Heparin Full code Admission and Anticipated Discharge Date Admission Date: February 27, 2024 Subjective Follow-up for tachybradycardia syndrome, status post pacemaker placement, etc. Seen resting in bed, comfortable, in good spirits States he feels on elevated sore over the pacemaker site area, otherwise feels fine overall Denies chest pain, shortness of breath, dizziness, palpitations, nausea No other new symptoms Review of Systems Review of Systems: all noted and negative except for above Physical Exam Physical Exam: General- oriented x 3, not in distress, speaks in sentences with no effort or accessory muscle use Eyes- anicteric Neck- no JVD Lungs- clear breath sounds bilaterally, No crackles or wheezing Heart- normal rate, regular rhythm; no murmurs Pacemaker on the right upper chest wall area, dressing in place, no edema, surrounding erythema/hematoma/bleeding Abdomen- normal bowel sounds, nondistended, soft, nontender Extremities- no pretibial edema, no calf tenderness Neuro- alert, oriented x 3; no gross focal neurologic deficits Skin- warm & dry Results & Data Results & Data Vital Signs (Past 12 Hours) Vital Signs Pulse Pulse Resp BP BP Pulse Ox O2 Del Method 02/27/24 15:35 59 L 156/74 H 93 Room Air 02/27/24 15:07 61 02/27/24 15:06 60 145/71 H 95 Room Air 02/27/24 14:36 58 L 138/69 95 Room Air 02/27/24 14:06 60 153/7 H 96 Room Air 02/27/24 13:51 61 127/94 94 Room Air 02/27/24 13:35 63 16 118/72 96 Room Air 02/27/24 13:20 60 16 136/64 92 Room Air 02/27/24 11:00 125/70 02/27/24 10:45 47 L 13 96 02/27/24 10:00 124/65 02/27/24 10:00 50 L 13 96 02/27/24 09:03 53 L 16 99 02/27/24 09:00 130/75 02/27/24 09:00 130/75 02/27/24 08:57 63 16 98 02/27/24 08:09 49 L 19 98 02/27/24 08:00 54 L 15 134/70 95 02/27/24 07:17 59 L 02/27/24 06:42 50 L 15 94 02/27/24 06:00 122/66 02/27/24 06:00 53 L 21 122/66
[2024-02-27] MEDS: ACETAMINOPHEN 325 MG TAB PO PRN (17:33)
[2024-02-27] MEDS: MAGNESIUM OXIDE 400 MG TAB PO SCH (20:24)
[2024-02-28] MEDS: traMADol HCL 50 MG TABLET PO PRN (01:44)
--- NOTE | 2024-02-28 09:39 | Cardiology Progress Note ---
Date of Service February 28, 2024 Assessment & Plan (1) Atrial flutter with rapid ventricular response: (2) Tachy-carleen syndrome: (3) CAD (coronary artery disease), crow coronary artery: Plan 79-year-old male presents with new onset atrial flutter, tachybradycardia syndrome with 6-second, symptomatic conversion pauses. Dual-chamber permanent pacemaker implanted 02/27/2024 without complication. Restart beta-saeed therapy. Atenolol 12.5 mg daily discontinued in favor of Toprol-XL 25 mg twice daily. Initiate oral anticoagulation with Eliquis 5 mg twice daily. Repeat CBC in 2 to 4 weeks with history of chronic thrombocytopenia. Await repeat pacemaker interrogation this a.m. Activate antitachycardia pacemaker therapies. Outpatient pacemaker wound check and interrogation in 7 days. Post pacemaker implantation activity restrictions reviewed. All questions answered to patient satisfaction. I spent a total of 60 minutes on the date of service in preparation, delivery, and documentation of the care provided to this patient, excluding any time spent in the performance of separately billed services. Admission and Anticipated Discharge Date Admission Date: February 27, 2024 Subjective 79-year-old male seen and examined at the bedside. Pacemaker implanted 02/27/2024 without complication. Atrial paced rhythm on telemetry. No recurrent atrial flutter. Notes mild soreness near the surgical site. Denies chest heaviness or tightness. No orthopnea, PND, or edema. Review of Systems Review of Systems: All systems reviewed & are unremarkable except as noted in Subjective Physical Exam Constitutional: well nourished; no acute distress Respiratory: no respiratory distress, no labored breathing and no retractions Cardiovascular: Rate/Rhythm: regular rate and regular rhythm Heart Sounds: normal S1, normal S2 and + murmur (1/6 LOUIE) Vessels: no JVD Extremities: + edema (Trace to mild bilateral ankle edema.) Gastrointestinal (Abdomen): Inspection/Auscultation: normal bowel sounds; abdomen not distended Percussion/Palpation: abdomen soft; abdomen nontender, no guarding and abdomen not rigid Neurologic: CN's II-XI intact bilaterally and moves all extremities Results & Data Vital Signs (Past 12 Hours) Vital Signs Temp Pulse Pulse Resp BP Pulse Ox O2 Del Method 02/28/24 07:56 36.5 C 59 L 18 145/73 H 95 Room Air 02/28/24 06:00 60 02/28/24 03:36 36.6 C 60 18 123/69 93 Room Air 02/27/24 23:00 36.6 C 60 18 138/69 95 Room Air 02/27/24 22:02 60 Laboratory Results Intake and Output 02/27/24 02/28/24 02/28/24 22:59 06:59 14:59 Intake Total 1400 / 1730.183 150 / 1730.183 Balance 1400 / 1730.183 150 / 1730.183 Intake: IV 1000 / 1180.183 Lactated Ringer's 1,000 ml @ 60 1000 / 1000 mls/hr IV .[id number] STA Rx#: [id number] Oral 400 / 550 150 / 550 Other: # Unmeasured Voids 3 Weight 87.6 kg (3) CAD (coronary artery disease), crow coronary artery [place] vs. transplanted heart: crow heart Associated angina: with stable angina Qualified Code(s): I25.118 - Atherosclerotic heart disease of crow coronary artery with other forms of angina pectoris
--- NOTE | 2024-02-28 10:10 | XRay Report ---
TWO VIEW CHEST CLINICAL HISTORY: Pacemaker implantation. FINDINGS: PA and lateral chest radiographs are compared to study dated 02/26/2024 and correlated with chest CT dated 06/26/2023. The patient is status post midline sternotomy. A 2-lead cardiac pacemaker has been implanted and partially obscures the left mid chest. Leads project over the right atrial lanny endage and the right ventricle. The heart is enlarged noting atherosclerotic calcification of the tho racic aorta. The pulmonary vasculature is noncongested. Emphysema and chronic interstitial thickening is similar to previous. There is bibasilar scarring/atelectasis. No airspace consolidation or pleura l effusion is identified. There is no pneumothorax. The skeletal structures are osteopenic. The bony thorax appears intact. Cholecystectomy clips are noted in the right upper quadrant. IMPRESSION: 1. A 2-lead cardiac pacemaker has been implanted as above. No pneumothorax is seen post procedure. 2. Cardiomegaly and emphysema without radiographic evidence of congestive failure. 3. No airspace consolidation or pleural effusion is identified. ACT 112: Negative or not required by law. Electronically signed by: Lawson Portillo M.D. 02/28/2024 10:09 AM
[2024-02-28 11:24] VITALS: O2SAT 96
[2024-02-28] MEDS: METOPROLOL SUCC 25MG EXT REL TAB PO STA (11:33)
[2024-02-28] MEDS: METOPROLOL SUCC 25MG EXT REL TAB PO SCH ×2 (11:43→11:44)
[2024-02-28 16:07] VITALS: BP 146/75; PULSE 59; RESP 16; TEMP 97.5
--- NOTE | 2024-02-28 16:18 | Hospitalist Progress Note ---
Date of Service February 28, 2024 Assessment & Plan (1) Tachy-carleen syndrome: Plan: per admitting service notes with addendum: Patient presented with new onset A-fib symptoms followed by symptomatic bradycardia (sinus pause) - s/p pacemaker placement 02/27/24 - [facility] [facility] Dr. Knight consulted Recommendations: Atenolol 12.5 mg daily discontinued, transition to Toprol XL 25 mg twice a day Initiate oral anticoagulation, Eliquis 5 mg twice daily Repeat CBC in 2 to 4 weeks with history of chronic thrombocytopenia Outpatient pacemaker wound check and interrogation in 7 days Troponin elevation secondary to above hx CAD status post CABG PVD hypertension, BP currently stable hyperlipidemia on statin Rx prediabetes, hemoglobin A1c of 6 last September 2022 chronic anemia, hemoglobin at baseline chronic thrombocytopenia past tobacco abuse DVT prophylaxis. Heparin Full code Disposition Evaluated by PT, recommend return home d/c home once cleared by Cardiology Service Admission and Anticipated Discharge Date Admission Date: February 27, 2024 Subjective Follow-up for tachybradycardia syndrome, status post PM placement, etc. Seen resting in bed, comfortable, in good spirits States he continues to feel fine overall Minimal discomfort over pacemaker site Denies chest pain, palpitations, dizziness Ambulating in the room with no problems Review of Systems Review of Systems: all noted and negative except for above Physical Exam Physical Exam: General- oriented x 3, not in distress, speaks in sentences with no effort or accessory muscle use Eyes- anicteric Neck- no JVD Lungs- clear breath sounds bilaterally, no rales/wheezes Heart- normal rate, regular rhythm; no murmurs Pacemaker site: Dressing in place, no bleeding or discharge, no warmth/tenderness/erythema/hematoma/bleeding Abdomen- normal bowel sounds, nondistended, soft, nontender Extremities- no pretibial edema, no calf tenderness Neuro- alert, oriented x 3; no gross focal neurologic deficits Skin- warm & dry Results & Data Results & Data Vital Signs (Past 12 Hours) Vital Signs Temp Pulse Pulse Resp BP Pulse Ox O2 Del Method 02/28/24 16:06 36.4 C L 59 L 16 146/75 H 96 Room Air 02/28/24 11:22 36.5 C 62 18 144/62 H 96 Room Air 02/28/24 07:56 36.5 C 59 L 18 145/73 H 95 Room Air 02/28/24 06:00 60 all noted and reviewed including below
--- NOTE | 2024-02-28 16:41 | Discharge Summary ---
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 Heparin Full code Disposition Evaluated by PT, recommend return home d/c home once cleared by Cardiology Service Notes For Next Care Provider Medication Changes From Visit Atenolol changed to metoprolol XL 25 mg p.o. twice daily Eliquis 5 mg p.o. twice daily started Admission HPI Per Admitting Provider History obtained from patient and records. Medical history significant for CAD status post CABG, PVD, hypertension, hyperlipidemia, prediabetes, GERD, chronic anemia (baseline hemoglobin of 13), chronic thrombocytopenia, skin cancer as per records, past tobacco abuse. Last confinement May 2023 under Orthopedics service for elective right knee surgery. No postop complications. Patient experienced palpitations last night while working on a cabinet at home. More exertion than usual. Denies actual chest pain or shortness of breath. Watch heart rate noted to be high at 140s. Palpitations unresponsive to nitro intake at home. Patient noted to be in rapid A-fib upon arrival at the ER. Transient SBP of 90s. Sinus pause noted on the monitor. Patient felt weak during episode. No chest pain, no SOB, no syncope. Patient currently comfortable. Medical History as above Surgical History : Knee surgery, cataract surgeries, retina surgery, TURP, skin cancer surgery, back surgery, CABG, orchiectomy, appendectomy, cholecystectomy Family History : DM, RA Personal/Social history : Past tobacco abuse, rare EtOH intake, lives with Admission Exam Per Admitting Provider GENERAL: Comfortable, pleasant, obese, no respiratory distress SKIN: Normal color, warm HEENT: Alopecia, pink palpebral conjunctivae, no ptosis, dry buccal mucosa NECK : Supple, no tenderness CHEST : CTA, no tenderness HEART : RRR, no obvious murmurs ABDOMEN: Some distention, nontender EXTREMITIES : Minimal LE swelling with prominent varicosities, without tenderness, no other conspicuous deformities noted NEUROLOGIC : Coherent, no facial asymmetry, no other gross focality Discharge Exam General- oriented x 3, not in distress, speaks in sentences with no effort or accessory muscle use Eyes- anicteric Neck- no JVD Lungs- clear breath sounds bilaterally, no rales/wheezes Heart- normal rate, regular rhythm; no murmurs Pacemaker site: Dressing in place, no bleeding or discharge, no warmth/tenderness/erythema/hematoma/bleeding Abdomen- normal bowel sounds, nondistended, soft, nontender Extremities- no pretibial edema, no calf tenderness Neuro- alert, oriented x 3; no gross focal neurologic deficits Skin- warm & dry Updated Medication List Medication Instructions Recorded Confirmed Type cholecalciferol (vitamin D3) 25 25 mcg PO HS 10/08/21 02/26/24 History mcg (1,000 unit) tablet (Vitamin D3) coenzyme Q10 100 mg capsule 100 mg PO QAM 10/08/21 02/26/24 History (CoQ-10) multivitamin 1 tab PO QAM 10/08/21 02/26/24 History rosuvastatin 40 mg tablet (Crestor) 40 mg PO QAM 10/08/21 02/26/24 History hydrochlorothiazide 12.5 mg tablet 12.5 mg PO QAM 12/17/22 02/26/24 History metronidazole 0.75 % topical cream 1 applic topical DAILY PRN Skin 12/17/22 02/26/24 History Irritation aspirin 81 mg tablet,delayed 81 mg PO DAILY 06/26/23 02/26/24 History release (Gus Low Dose Aspirin) magnesium oxide 400 mg PO HS 06/26/23 02/26/24 History nitroglycerin 400 mcg/spray 400 mcg sublingual DIRECTED PRN 06/26/23 02/26/24 History translingual Chest Pain diazepam 5 mg tablet 5 mg PO TID PRN Anxiety 02/26/24 02/26/24 History ketoconazole 2 % topical cream 1 applic topical BID PRN FLARING 02/26/24 02/26/24 History ON FACE apixaban 5 mg tablet (Eliquis) 5 mg PO BID 30 days #60 tabs 02/28/24 Rx metoprolol succinate 25 mg 25 mg PO BID 30 days #60 tabs 02/28/24 Rx tablet,extended release 24 hr Hospital Stay Data Consultations 02/26/24 23:13 ED Decision to Admit Stat 02/27/24 02:13 Consult Cardiology Routine 02/27/24 09:19 Consult Cardiac Electrophysiology Routine Procedures Performed Operation Date: 02/27/24 11:00 Actual Procedures p Pacer with A/V Leads (Dual) - Vincent Barrett MD Diagnostic Imagining Performed 02/27/24 10:30 EP Lab Images for PACS ONCE CXR: CLINICAL HISTORY: Dysrhythmia FINDINGS: An AP, portable, upright chest radiograph is compared to chest x-ray and chest CT dated 06/26/2023. The patient is status post midline sternotomy. The heart is enlarged noting atherosclerotic calcification of the thoracic aorta. The pulmonary vasculature is noncongested. Emphysema and chronic interstitial thickening is similar to previous. There is bibasilar scarring/atelectasis. No airspace consolidation or large pleural effusion is identified. No pneumothorax is seen. The skeletal structures are osteopenic. The bony thorax is grossly intact. IMPRESSION: Cardiomegaly and emphysema with no active disease in the chest. ACT 112: Negative or not required by law. Electronically signed by: Lawson Portillo M.D. 02/26/2024 10:31 PM TWO VIEW CHEST CLINICAL HISTORY: Pacemaker implantation. FINDINGS: PA and lateral chest radiographs are compared to study dated 02/26/2024 and correlated with chest CT dated 06/26/2023. The patient is status post midline sternotomy. A 2-lead cardiac pacemaker has been implanted and partially obscures the left mid chest. Leads project over the right atrial appendage and the right ventricle. The heart is enlarged noting atherosclerotic calcification of the thoracic aorta. The pulmonary vasculature is noncongested. Emphysema and chronic interstitial thickening is similar to previous. There is bibasilar scarring/atelectasis. No airspace consolidation or pleural effusion is identified. There is no pneumothorax. The skeletal structures are osteopenic. The bony thorax appears intact. Cholecystectomy clips are noted in the right upper quadrant. IMPRESSION: 1. A 2-lead cardiac pacemaker has been implanted as above. No pneumothorax is seen post procedure. 2. Cardiomegaly and emphysema without radiographic evidence of congestive failure. 3. No airspace consolidation or pleural effusion is identified. ACT 112: Negative or not required by law. Pending Results Patient Have Any Pending Studies at Discharge: No Discharge Instructions Given to Patient (Per Discharging Provider) PLEASE REFER TO YOUR NEW MEDICATION LIST AND FOLLOW INSTRUCTIONS CAREFULLY. YOUR NEW MEDICATIONS INCLUDE: Metoprolol XL 25 mg p.o. twice daily -For heart rate control Eliquis 5 mg p.o. twice daily -Blood thinner to prevent stroke Discontinue atenolol. PLEASE CALL YOUR PRIMARY CARE PHYSICIAN OR RETURN TO THE ER IF WITH WORSENING OF SYMPTOMS, INCLUDING Chest pain, palpitations, dizziness, shortness of breath, weakness, Uncontrolled bleeding, etc. FOLLOW UP WITH PRIMARY CARE PHYSICIAN in 1 week. FOLLOW UP WITH [facility] in 1 week. The clinic will be calling you soon for the appointment. ACTIVITY RECOMMENDATIONS: * Do not raise affected arm over head for 2 weeks. SPECIAL CARE INSTRUCTIONS: * If bleeding occurs, apply direct pressure to area for 5 minutes. * Call your doctor if you have severe pain, fever, drainage or bleeding at site. * Keep dressing on and dry for 48 hours then remove. * Keep any scheduled doctor's appointment. * Implant Card - hand held device with website information given. SKIN IRRITATION: * You may experience some redness and/or swelling in the area where radiation was administered. If any skin irritation occurs, please contact your family physician. Total Time Total Time Spent Total Time Spent (In Minutes): 40 MINUTES
[2024-02-28] MEDS ORDERED: METOPROLOL SUCC 25MG EXT REL TAB PO SCH ×2 (16:45→21:00)
[2024-02-28] MEDS ORDERED: APIXABAN 5 MG TABLET PO SCH ×2 (16:45→21:00)
== END 2024-02-28 17:25 | disposition home or self-care (01) | DRG 243 ==
LOC: ED 21:44 → EDINP 02-27 01:03 → CC 02-27 11:41 → 4W 02-27 11:42 → INTOOBSV 02-27 11:42